=== PATIENT | male | born 1935 | race African-American/Black ===

== ENCOUNTER 2016-09-01 06:09 | Inpatient (IN) ==
--- NOTE | 2016-08-25 15:49 | EKG Report ---
Test Performed on : 08/25/2016 3:45:40 PM Test Reason : PAT Blood Pressure : / mmHG Vent. Rate : 078 BPM Atrial Rate : 078 BPM P-R Int : 244 ms QRS Dur : 088 ms QT Int : 378 ms P-R-T Axes : 065 023 020 degrees QTc Int : 430 ms Sinus rhythm. with 1st degree AV block. with premature atrial complexes. Otherwise normal ECG No previous ECGs available Confirmed by Smiley BEASLEY, Nkihil Gay ([id number]) on 08/26/2016 9:44:18 PM
[2016-08-25 16:07] LABS: MANUAL DIFF NEEDED? NO
[2016-08-25 16:10] LABS: BASO% 0.3 % (0.0-0.8); EOS# 0.14 X1000 (0.0-0.7); EOS% 1.4 % (0.0-10.0); HEMOGLOBIN 14.1 g/dL (14.0-18.0); IMM GRAN# 0.02 X1000 (0.0-0.04); IMM GRAN% 0.2 % (0.0-0.5); LYMPH# 3.48 X1000 (1.2-3.4); LYMPH% 35.4 % (20.5-51.1); MCH 29.7 PG (27-31); MCHC 33.6 g/dL (33-37); MCV 88.6 FL (81-99); MONO# 0.74 X1000 (0.11-0.59); MONO% 7.5 % (1.7-9.3); NEUT% 55.2 % (42.2-75.2); PLT 243 X1000 (130-400); RBC 4.74 XMIL (4.7-6.1)
[2016-08-25 16:29] LABS: AGAP 13; BUN 16 mg/dL (8-22); CALCIUM 9.1 mg/dL (8.8-10.2); CHLORIDE 100 mmol/L (98-107); COSMO 283; POTASSIUM 3.3 mmol/L (3.5-5.1); SODIUM 142 mmol/L (136-145); TCO2 29 mmol/L (25-35)
[2016-09-01] MEDS ORDERED: LR 1,000 ML ONE ×2 (06:31→13:54)
[2016-09-01] MEDS ORDERED: KEFZOL 1 GM/D5W 1 GM/50 ML IVPB ONE (06:31)
[2016-09-01] MEDS ORDERED: NITROGLYCERIN 50 MG/D5W 50 MG/250 ML IV.SOLN ONE (07:48)
[2016-09-01] MEDS ORDERED: HEPARIN ONE (08:54)
[2016-09-01] MEDS ORDERED: NS 1,000 ML ONE ×2 (08:55→11:05)
[2016-09-01] MEDS ORDERED: MARCAINE 0.25% PF/EPI 1:200,000 ONE (08:55)
[2016-09-01] MEDS ORDERED: XYLOCAINE 1% ONE (08:55)
[2016-09-01] MEDS ORDERED: KEFZOL ONE (08:55)
[2016-09-01] MEDS ORDERED: NS 500 ML ONE ×2 (08:55→13:54)
[2016-09-01] MEDS: OFIRMEV 1000 MG/ISOTONIC SOLN 1,000 MG/100 ML BOTTLE ONE ×2 (11:54→14:08)
[2016-09-01] MEDS ORDERED: NEO-SYNEPHRINE 50 MG in NS 250 ML IV SCH (13:00)
[2016-09-01] MEDS ORDERED: FENTANYL ONE (13:39)
[2016-09-01] MEDS ORDERED: NEOSTIGMINE ONE (13:53)
[2016-09-01] MEDS ORDERED: ANESTHESIA PB SET 88 IN 5742 ONE (13:54)
[2016-09-01] MEDS ORDERED: QUELICIN (DOSE) ONE (13:54)
[2016-09-01] MEDS ORDERED: ROBINUL ONE (13:54)
[2016-09-01] MEDS ORDERED: NEO-SYNEPHRINE ONE (13:54)
[2016-09-01] MEDS ORDERED: XYLOCAINE-MPF 2% ONE (13:54)
[2016-09-01] MEDS ORDERED: NORCURON ONE (13:54)
[2016-09-01] MEDS ORDERED: ULTRAM PO PRN (13:56)
[2016-09-01] MEDS ORDERED: ANTIVERT PO PRN (13:56)
[2016-09-01] MEDS ORDERED: ZOFRAN IV PRN (13:56)
[2016-09-01] MEDS: NS 1,000 ML IV ONE ×2 (14:08→21:19)
--- NOTE | 2016-09-01 15:30 | OPERATIVE NOTE ---
PROCEDURE DATE: 09/01/2016 DATE OF PROCEDURE: 09/01/2016. PROCEDURE PERFORMED: Right carotid endarterectomy. SURGEON: Simon Membreno MD. KENNEL HELPER: LUZ MARINA Youngbolod. 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 INDICATIONS: This is an 79-year-old with a greater than 90% stenosis of his right internal. There appeared to be serial or in-tandem stenoses in the internal carotid. The left internal is occluded. DESCRIPTION OF PROCEDURE: Satisfactory general endotracheal anesthesia was achieved. The right neck was ultrasound to identify the bifurcation and it was noted to be high. The right side of the neck was prepped and draped in a sterile fashion. We placed the patient in reverse Trendelenburg. We really went in the high skin line and then marked the skin in the high skin line, anesthetized the skin 0.25 Marcaine with epinephrine. Incised the skin in an oblique fashion in the high skin line. Carried our incision through the platysma. We then placed our Gelpi retractor. Small crossing veins were clipped and divided or ligated and divided. We then dissected down to the common carotid. We gave the patient 5000 units of heparin systemically. We surrounded the common carotid with an umbilical tape. We then dissected cephalad and identified the external carotid and surrounded with a large vessel loop. The superior thyroid was surrounded with a small vessel loop. We dissected and clipped the crossing veins and divided them and identified the hypoglossal nerve, protected it from harm. We saw where the ansa merged with the hypoglossal. We retracted underneath the mandible and identified the internal carotid. We dissected distal past the plaque. We surrounded it with small vessel loop. After the heparin had circulated for more than 5 minutes, we then clamped off the occluded flow in the branch vessels with vessel loops, but in fact I had to use a profunda clamp to get on the internal. We then used a DeBakey clamp on the common. We then incised the common with 11 blade and extended with the Vidal scissors. This was done under 2.5 loupe magnification. We went through the plaque in the bulb and the proximal end, and then the next stenosis downstream a bit or upstream a bit until we got into normal internal carotid. We placed a 4 to 3 mm Sundt shunt with the smaller end going in the internal and the larger end going in the common. These were secured with ring clamps in the internal and the common. Under 2.5 loupe magnification, we raised the plaque out of the common and transected with the Vidal scissors. We then used the Mesa to dissect the plaque out of first the external and then the internal. We had a satisfactory taper point in the internal past the second stenosis. We irrigated out the endarterectomized vessel, removed all leaflets we could identify. We decided that we would not patch this because it was so high, and it would be difficult to actually sew the patch to the artery. So we simply began closing the artery with a 6- 0 Prolene running stitch beginning in the internal and coming back toward the common. As we neared completion, we back bled the external. We took the shunt out of the internal and clamped it once again with a profunda clamp. Then, removed the shunt from the common flushing it and clamping it again with the DeBakey clamp. We then finished the arterial closure. We held the internal occluded over the external and then common. After 5 seconds, we opened the internal. One small bleeding point required an extra 6-0 Prolene simple stitch and this achieved complete hemostasis of the arteriotomy closure. A good pulse was noted within the artery. There was no evidence of dissection. We irrigated out the neck and placed a Landon drain within the neck, bringing it out inferior to the incision just above the clavicle. We secured it to the skin level with 2-0 silk. We then closed the platysma with a running 3-0 Polysorb, once again injected local 0.25 Marcaine with epinephrine into the subcutaneous tissue. We then closed the skin with a 4-0 Polysorb subcuticular stitch. Sterile dressing was applied. He tolerated it satisfactorily and was awakened. cc: Simon Membreno MD
[2016-09-01] MEDS: OFIRMEV 1000 MG/ISOTONIC SOLN 1,000 MG/100 ML BOTTLE IV SCH ×2 (17:26→23:46)
[2016-09-01] MEDS ORDERED: NS 500 ML IV ONE (20:30)
[2016-09-01] MEDS ORDERED: BLISTEX MEDICATED BERRY LIP BALM TOP PRN (23:35)
[2016-09-02] MEDS: OFIRMEV 1000 MG/ISOTONIC SOLN 1,000 MG/100 ML BOTTLE IV SCH (05:01)
[2016-09-02] MEDS ORDERED: TYLENOL PO PRN (07:10)
[2016-09-02] MEDS: NORVASC PO SCH (08:10)
[2016-09-02] MEDS: HYDROCHLOROTHIAZIDE PO SCH (08:10)
[2016-09-02] MEDS: CATAPRES PO SCH (08:10)
[2016-09-02] MEDS: PRINIVIL PO SCH (08:10)
[2016-09-02] MEDS: ASPIRIN PO SCH (08:10)
[2016-09-02] MEDS: PRAVACHOL PO SCH (08:10)
[2016-09-03] MEDS: ASPIRIN PO SCH (11:16)
[2016-09-03] MEDS: PRAVACHOL PO SCH (11:17)
[2016-09-03] MEDS: HYDROCHLOROTHIAZIDE PO SCH (11:17)
[2016-09-03] MEDS: CATAPRES PO SCH (11:17)
[2016-09-03] MEDS: NORVASC PO SCH (11:18)
[2016-09-03] MEDS: PRINIVIL PO SCH (11:19)
[2016-09-03] MEDS: PERIDEX MT SCH (23:52)
[2016-09-04] MEDS: ASPIRIN PO SCH (08:43)
[2016-09-04] MEDS: NORVASC PO SCH (08:43)
[2016-09-04] MEDS: PRINIVIL PO SCH (08:45)
[2016-09-04] MEDS: PRAVACHOL PO SCH (08:45)
[2016-09-04] MEDS: PERIDEX MT SCH (08:45)
[2016-09-04 11:33] VITALS: BP 139/63
--- NOTE | 2016-09-20 21:14 | DISCHARGE SUMMARY ---
ADMISSION DATE: 09/01/2016 DISCHARGE DATE: 09/04/2016 PRIMARY DISCHARGE DIAGNOSIS: High-grade right carotid stenosis with total carotid occlusion on the left. PRIMARY PROCEDURE: Right carotid endarterectomy. HOSPITAL COURSE: This 80-year-old gentleman was admitted for right carotid endarterectomy. He underwent that procedure uneventfully on 09/01/2016. Postoperatively he was somewhat lethargic. We were able to remove his arterial line and transfer him out of the unit. Due to his lethargy and listlessness, we kept him in the hospital until his daughter was comfortable taking him home. By 09/04 she was ready to take him home. He will take a baby aspirin at home. He will resume his usual medications. He will return to see me in the office in followup. He is discharged neurologically okay. cc: Simon Membreno MD
== END 2016-09-04 16:30 | disposition home or self-care (01) ==
LOC: SURHOLD 06:09 → ICU 13:59 → 4N 09-02 09:50
PROVIDERS: ADMIT Surgery; ATTEND Surgery

== ENCOUNTER 2016-10-07 19:18 | Inpatient (IN) ==
[2016-10-07 23:24] LABS: URINE CULTURE NEEDED? NO; URINE MICRO REVIEW NEEDED? NO; URINE SOURCE CLEAN CATCH
[2016-10-07 23:35] LABS: UR AMPHETAMINES QUAL NONE DETECTED (NONE DETECT); UR BARBITUATES QUAL NONE DETECTED (NONE DETECT); UR BENZODIAZEPIN QUAL NONE DETECTED (NONE DETECT); UR CANNABINOIDS QUAL NONE DETECTED (NONE DETECT); UR COCAINE QUAL NONE DETECTED (NONE DETECT); UR METHADONE QUAL NONE DETECTED (NONE DETECT); UR OPIATES QUAL NONE DETECTED (NONE DETECT); UR OXYCODONE QUAL NONE DETECTED (NONE DETECT); UR PCP QUAL NONE DETECTED (NONE DETECT)
[2016-10-07 23:38] LABS: MANUAL DIFF NEEDED? NO
[2016-10-07 23:41] LABS: BASO% 0.2 % (0.0-0.8); EOS# 0.08 X1000 (0.0-0.7); EOS% 0.8 % (0.0-10.0); HEMATOCRIT 39.2 % (42.0-52.0); HEMOGLOBIN 13.1 g/dL (14.0-18.0); IMM GRAN# 0.02 X1000 (0.0-0.04); IMM GRAN% 0.2 % (0.0-0.5); LYMPH# 3.33 X1000 (1.2-3.4); LYMPH% 31.7 % (20.5-51.1); MCH 29.4 PG (27-31); MCHC 33.4 g/dL (33-37); MCV 88.1 FL (81-99); MONO# 0.74 X1000 (0.11-0.59); MPV 9.9 FL (7.4-10.4); NEUT% 60.1 % (42.2-75.2); PLT 260 X1000 (130-400); RBC 4.45 XMIL (4.7-6.1)
[2016-10-07 23:43] LABS: BILIRUBIN URINE NEGATIVE (NEGATIVE); BLOOD URINE NEGATIVE (NEGATIVE); COLOR YELLOW; GLUCOSE URINE NEGATIVE (NEGATIVE); LEUKOCYTES URINE NEGATIVE (NEGATIVE); NITRITE URINE NEGATIVE (NEGATIVE); PROTEIN URINE TRACE mg/dL (NEGATIVE); TURBIDITY URINE CLEAR (CLEAR); UROBILINOGEN URINE 2 mg/dL (NORMAL)
[2016-10-07 23:44] LABS: UR EPITHELIAL CELLS <10 /HPF (<10); URINE BACTERIA NEGATIVE /HPF; URINE RBC <10 /HPF (<10); URINE WBC <10 /HPF (<10)
--- NOTE | 2016-10-07 23:44 | PROVIDER DOCUMENTATION ---
HPI-General Adult - General Chief Complaint: General Adult Stated Complaint: POSS. POST OP COMPLAINT, GENERAL Time Seen by Provider: 10/07/16 23:07 Source: patient Allergies/Adverse Reactions: Patient Allergies Allergy/AdvReac Type Severity Reaction Status Date / Time No Known Allergies Allergy Verified 08/25/16 15:23 Home Medications: Home Medication List Medication Instructions Recorded Confirmed Last Taken Type Amlodipine [Norvasc] 5 mg PO DAILY 08/26/16 10/07/16 09/01/16 04:00 History Hydrochlorothiazide 12.5 mg PO DAILY 08/26/16 10/07/16 09/01/16 04:00 History LISINOpril [Prinivil] 10 mg PO DAILY 08/26/16 10/07/16 08/31/16 08:00 History PRAVAstatin [Pravachol] 10 mg PO DAILY 08/26/16 10/07/16 09/01/16 04:00 History Aspirin 81 mg PO DAILY #100 chewtab 09/03/16 10/07/16 Unknown Rx - History of Present Illness -Gen Adult Nature of Presenting Problems: Pt is a 80 y/o M c who had bilat carotid endarterectomy on 08/22. Per his daughter he has had difficulty performing simple tasks since the procedure. She states that cognitively he has not changed. Family brought pt in today due to jerking and shaking movements that lasted approximately 30 minutes then resolved. She does not think he had LOC. Pt has a h/o htn, hld, pad, cad. Review of Systems - Adult - REVIEW OF SYSTEMS - ADULT Constitutional: reports: see HPI, jonathon. denies: chills Eyes: reports: no symptoms reported. denies: blurred vision, double vision Ears, Nose, Mouth & Throat: reports: no symptoms reported. denies: ear pain, nose pain Cardiovascular: reports: no symptoms reported. denies: chest pain, orthopnea Respiratory: reports: no symptoms reported. denies: cough, shortness of breath Gastrointestinal: reports: no symptoms reported. denies: abdominal pain, nausea Genitourinary: reports: no symptoms reported. denies: dysuria, hematuria Musculoskeletal: reports: no symptoms reported. denies: joint pain, joint swelling Integumentary: reports: no symptoms reported. denies: itching, rash Neurological: reports: see HPI, ataxia, loss of balance, tremors. denies: numbness, paresthesia Psychiatric: reports: no symptoms reported. denies: anxiety, emotional problems Endocrine: reports: no symptoms reported. denies: cold intolerance, heat intolerance Hematologic/Lymphatic: reports: no symptoms reported. denies: blood clots, low blood count Allergic/Immunologic: reports: no symptoms reported. denies: allergic reactions , food allergy All Other Systems: Reviewed and Negative Past History - Adult - PAST MEDICAL HISTORY-ADULT Review of Records: reports: Old Records Reviewed, Nursing Assessment Review, Medications Reviewed, Social history reviewed & non-contributory. Major Childhood Illnesses: reports: denies history Cardiovascular: reports: denies history Respiratory: reports: denies history Gastrointestinal: reports: denies history Obstetrical/Gynecological: reports: denies history Genitourinary: reports: denies history Musculoskeletal: reports: denies history Neurological: reports: denies history Endocrine/Immune: reports: denies history Other Conditions: reports: denies history - IMMUNIZATION STATUS Childhood Immunizations: See Nurse Assessment Flu Vaccine: See Nurse Assessment - FAMILY HISTORY Family History: reviewed, not pertinent - SOCIAL HISTORY Smoking: denies Substance Use: none/never Alcohol Use Frequency: never Living Situation: family Physical Exam-General - PHYSICAL EXAM-ADULT Initial Vital Signs Reviewed: Yes - CONSTITUTIONAL General Appearance: alert, no apparent distress - EYES Eyes: PERRL/EOMI, pink conjunctivae - HEAD, EARS, NOSE, MOUTH & THROAT HENMT: normocephalic/atraumatic, moist mucous membranes, normal ENT inspection - NECK Neck: normal inspection - RESPIRATORY Respiratory: chest non-tender, lungs clear, normal breath sounds - CARDIOVASCULAR Cardiovascular: normal peripheral pulses, regular rate, rhythm - GASTROINTESTINAL (ABDOMEN) Abdominal Exam: normal bowel sounds, non tender, soft - LYMPHATIC Lymphatic: no adenopathy - MUSCULOSKELETAL Back Exam: normal inspection, no CVA tenderness, no vertebral tenderness Extremity: normal range of motion, non-tender, normal inspection - SKIN Integumentary: normal color, normal turgor, warm/dry - NEUROLOGIC Neurologic: grossly normal, no motor/sensory deficits - PSYCHIATRIC Psych/Mental Status: normal mood/affect, normal thought content, normal thought process, oriented x 3 Progress - PLAN OF CARE/RESULTS Progress/Plan/Lab Results: Vital Signs - 8 hr 10/07/ 19:26 Temperature 98.6 F Pulse Rate 88 Respiratory Rate 14 Blood Pressure 112/60 O2 Sat by Pulse Oximetry 99 Laboratory Results - last 24 hr 10/07/16 10/07/16 10/07/16 21:50 21:50 23:34 WBC 10.52 RBC 4.45 L Hgb 13.1 L Hct 39.2 L MCV 88.1 MCH 29.4 MCHC 33.4 RDW Std Deviation 13.2 Plt Count 260 MPV 9.9 Immature Gran % (Auto) 0.2 Neut % (Auto) 60.1 Lymph % (Auto) 31.7 [place] % (Auto) 7.0 Eos % (Auto) 0.8 Baso % (Auto) 0.2 Immature Gran # (Auto) 0.02 Neut # (Auto) 6.33 Lymph # (Auto) 3.33 [place] # (Auto) 0.74 H Eos # (Auto) 0.08 Baso # (Auto) 0.02 Urine Source CLEAN CATCH Urine Color YELLOW Urine Turbidity CLEAR Urine pH 5.0 Ur Specific [place] 1.020 Urine Protein TRACE A Ur Glucose (Stick) NEGATIVE Ur Ketones (Stick) TRACE A Urine Blood NEGATIVE Urine Nitrite NEGATIVE Urine Bilirubin NEGATIVE Urobilinogen Dipstick 2 A Urine Leukocytes NEGATIVE Urine WBC (Auto) <10 Urine RBC (Auto) <10 U Epithel Cells (Auto) <10 Urine Bacteria (Auto) NEGATIVE Urine Opiates Screen NONE DETECTED Ur Oxycodone Screen NONE DETECTED Ur Methadone, Qual NONE DETECTED Ur Barbiturates Screen NONE DETECTED Ur Phencyclidine Scrn NONE DETECTED Ur Amphetamines Screen NONE DETECTED U Benzodiazepines Scrn NONE DETECTED Urine Cocaine Screen NONE DETECTED U Cannabinoids Screen NONE DETECTED Orders Category Date Time Status Finger Stick Blood Sugar (ED) DIRECTED Care 10/07/16 21:33 Active CHEST-PORTABLE [RAD] Stat Exams 10/07/16 21:33 Taken HEAD W/O CONTRAST [CT] Stat Exams 10/07/16 21:34 Taken ALCOHOL BLOOD Stat Lab 10/07/16 23:34 Received CBC WITH ELECTRONIC DIFF [HEME] Stat Lab 10/07/16 23:34 Completed CK PROFILE [SP CHEM] Stat Lab 10/07/16 23:34 Received COMPREHENSIVE METABOLIC PANEL [CHEM] Stat Lab 10/07/16 23:34 Received PROTIME WITH INR [COAG] Stat Lab 10/07/16 23:34 Received PTT [COAG] Stat Lab 10/07/16 23:34 Received TROPONIN T Stat Lab 10/07/16 23:34 Received URINALYSIS W/POSS RFLX CULT-1 [URINALYSIS] Stat Lab 10/07/16 21:50 Completed URINE DRUG SCREEN Stat Lab 10/07/16 21:50 Completed EKG [EKG] Stat Ther 10/07/16 19:32 Ordered Result Diagrams: 10/07/16 23:34 10/07/16 23:34 - CT/MRI 1 CT Study: Head Impression: Normal CT Results: no acute finding - radiology - CONSULTS/PCP/HOSPITALIST Notification #1 *Consult/PCP/Hospitalist*: Dr. Membreno (General Surgery) Time Discussed: 00:41 Reason/Comments: Agree c admission. Will see as consult. #2 Consult: Dr. West (Hospitalist) Time Discussed: 00:42 Reason/Comments: admit Departure - Departure Time of Disposition Decision: 00:57 DIAGNOSIS: Altered mental status Qualifiers: Altered mental status type: unspecified Qualified Code(s): R41.82 - Altered mental status, unspecified Disposition: ADMITTED INPATIENT 09 Certified Medical Emergency: Emergent Condition: Stable Referrals and Follow-Ups: Erendira Guzman MD [Primary Care Provider] - - Critical Care Note This patient required my direct & personal management of CC.: No Attestation - Physician/ HOOD Attestation Patient care was provided by Advanced Practice Provider:: Yes Advanced Practice Provider:: Jin Chacon Advanced Practice Provider documentation review:: The Mid-level provider documentation, treatment plan and medical decision making was reviewed by the physician who agrees with all treatment and medical decision making by the [facility].
[2016-10-07 23:49] LABS: INR 1.03; PROTIME 10.8 Seconds (9.2-11.7); PTT 29.1 Seconds (22.0-36.0)
[2016-10-08 00:11] LABS: ALBUMIN 3.9 g/dL (3.5-5.0); CALCIUM 9.4 mg/dL (8.8-10.2); POTASSIUM 3.9 mmol/L (3.5-5.1); TOTAL BILIRUBIN 0.36 mg/dL (0.20-1.00); TOTAL PROTEIN 7.6 g/dL (6.3-8.3)
[2016-10-08] MEDS ORDERED: NS 1,000 ML IV SCH ×2 (01:37→10:38)
[2016-10-08] MEDS ORDERED: ZOFRAN IV PRN (01:37)
--- NOTE | 2016-10-08 04:04 | HISTORY AND PHYSICAL ---
PRIMARY CARE PROVIDER: Erendira Guzman MD CHIEF COMPLAINT: Shaking spell at home. HISTORY OF PRESENT ILLNESS: This is an 80-year-old male, who recently had a right carotid endarterectomy on, I believe, 08/22/2016, per his daughter. The left was 100% occluded. Since that time, they state that he has had difficulty performing simple tasks such as putting on his clothes appropriately or picking up the correct silverware. Apparently, his mentation has not changed. On arrival to the emergency room, he was alert and oriented as per his usual. During my interview, the patient was not able to tell me the year; however, his and daughter at the bedside stated that he usually does not know the year. He was oriented to person, place, and situation. He was brought in related to a jerking and shaking movement that neither of the family members witnessed. He did not lose consciousness. He did not lose continence of his bowel or bladder. He continued to talk throughout apparently. It lasted for around 30 minutes and resolved. He has a past medical history of hypertension, hyperlipidemia, PAD and CAD. A CT scan was obtained of his head and Radiology interpreted as no acute disease. Laboratory data was grossly normal other than a BUN of 46 and a creatinine of 1.5. The patient has a baseline creatinine of 0.9 as tested on 08/25/2016. He will be admitted for further evaluation and treatment. PAST MEDICAL HISTORY: 1. Hypertension. 2. Hyperlipidemia. 3. Prostate cancer. 4. Coronary artery disease. 5. Peripheral artery disease. SURGICAL HISTORY: 1. Prostatectomy. 2. Right carotid endarterectomy performed by Dr. Membreno, August 2016. SOCIAL HISTORY: Lives at home with his . No tobacco, alcohol or illicit drug use or abuse. FAMILY HISTORY: Brother and father abused alcohol. Brother and mother had anemia. Sister had colon cancer. Father and mother had hypertension. ALLERGIES: No known drug allergies. HOME MEDICATIONS: 1. Hydrochlorothiazide 12.5 mg p.o. daily. 2. Pravachol 10 mg p.o. daily. 3. Lisinopril 10 mg p.o. daily. 4. Norvasc 5 mg p.o. daily. 5. Aspirin 81 mg p.o. daily. REVIEW OF SYSTEMS: Fourteen point review of systems conducted with the patient. Pertinent positives listed above in the HPI. All other systems were reviewed and found to be negative. PHYSICAL EXAMINATION: VITAL SIGNS: Temperature 98.6 degrees, pulse 88, respirations 14, blood pressure 112/60, oxygen saturation 99% on room air. GENERAL: This is a slow to respond 80-year-old male, but answers all questions appropriately in no acute distress lying in the ER stretcher. HEENT: Head is atraumatic, normocephalic. Pupils equal, round, reactive to light. Extraocular eye movement intact. Sclerae is anicteric. Conjunctivae is pink. Oral mucosa is dry. NECK: Supple. No JVD. No thyromegaly. Trachea is midline. No cervical lymphadenopathy. CARDIAC: S1-S2 appreciated. Regular rhythm. No murmurs, gallops, rubs. LUNGS: Clear to auscultation bilaterally. No rhonchi, wheezes or rales. Symmetrical rise and fall of respirations. ABDOMEN: Soft, nondistended, nontender. Bowel sounds present in all 4 quadrants. Normoactive. No pulsatile mass. No organomegaly. EXTREMITIES: No clubbing or cyanosis. Trace edema bilateral lower extremities nonpitting, 2+ pedal pulses. NEUROLOGICAL: Alert and oriented to person, place, and situation. Did not know the time. However, this is his baseline. No facial asymmetry. Cranial nerves 2-12 were grossly intact. MUSCULOSKELETAL: 5/5 upper and lower extremity strength equal bilaterally. DIAGNOSTIC DATA: CT of the head, no acute disease is interpreted by Radiology. LABORATORY DATA: WBC 10.52, hemoglobin 13.1, hematocrit 39.2, platelet count 260,000. Coagulation studies within normal limits. Sodium 137, potassium 3.9, chloride 97, carbon dioxide 24, BUN 46, creatinine 1.5, glucose 87. Urine unremarkable. Toxicology screen is negative. ASSESSMENT AND PLAN: 1. Acute kidney injury. The patient had surgery last month. The family states that it is hard to get him to drink as much as they were told. He had continued to take his lisinopril thiazide diuretic, which likely compounded the problem. We will give him normal saline at 100 mL an hour. Hold PETRA inhibitor and thiazide diuretic. 2. Hypertension. Continue Norvasc. Patient is normotensive. Will monitor. 3. Hyperlipidemia. Continue pravastatin. 4. Carotid stenosis. Patient is status post right carotid endarterectomy August of this year. We will consult Dr. Membreno to further evaluate left carotid is 100% occluded. Further recommendations per patient's clinical course. Dictated by BRITTANY Sandy for Jeremiah West MD cc: BRITTANY Sandy MD Robert C. Walker, MD Emily M. McClure, MD
[2016-10-08] MEDS: NORVASC PO SCH (08:15)
[2016-10-08] MEDS: ASPIRIN PO SCH (08:15)
[2016-10-08] MEDS ORDERED: HALDOL IM PRN (08:39)
[2016-10-08] MEDS ORDERED: STERILE WATER INJ. INJ PRN (08:40)
[2016-10-08] MEDS ORDERED: GEODON IM PRN (08:40)
[2016-10-08] MEDS ORDERED: HALDOL ONE (08:45)
--- NOTE | 2016-10-08 09:39 | Diag Imaging Result Doc PS360 ---
HEAD W/O CONTRAST - 10/07/2016 INDICATION: AMS TECHNIQUE: A CT dose reduction protocol was used. COMPARISON: None FINDINGS: There is mild atrophy. There is mild cerebral white matter chronic microvascular disease. There are small areas of encephalomalacia at the frontal lobes bilaterally compatible with small, old strokes. No intracranial mass or hemorrhage. The skull is intact. The sinuses, mastoids, and middle ears are clear. IMPRESSION: Chronic ischemic changes of the brain. No acute abnormality. Electronically signed by William Pinedo 10/08/2016 9:37 AM
--- NOTE | 2016-10-08 09:42 | Diag Imaging Result Doc PS360 ---
CHEST-PORTABLE - 10/07/2016 INDICATION: AMS TECHNIQUE: COMPARISON: CT of the neck 08/16/2016 FINDINGS: The right paratracheal stripe density represents unfolded vessels. The lungs are clear of infiltrate. Heart size is normal. No pneumothorax or pleural effusion. IMPRESSION: No acute disease. Electronically signed by William Pinedo 10/08/2016 9:40 AM
[2016-10-08 10:16] LABS: ALLEN TEST YES; BE -3.6 mmoll (-3.0-3.0); BLOOD TYPE ARTERIAL; DRAW SITE R RADIAL; METHB 1.1 % (0.0-1.5); O2(CT) 19.5 mL/dL (15.0-23.0); PCO2(98.6) 33 mmHg (35-45); PO2(98.6) 336 mmHg (60-100); SAMPLE BLOOD; SAO2 99.9 % (95.0-100.0); THB 13.6 g/dL (11.5-17.4)
[2016-10-08 10:17] LABS: MODALITY AMBU BAG
--- NOTE | 2016-10-08 11:11 | Diag Imaging Result Doc PS360 ---
HEAD W/O CONTRAST - 10/08/2016 INDICATION: post code TECHNIQUE: A CT dose reduction protocol was used. COMPARISON: 10/07/2016 FINDINGS: Stable atrophy and mild periventricular white matter chronic microvascular disease. Stable small area of old encephalomalacia at the right frontal lobe laterally. No intracranial mass or hemorrhage. IMPRESSION: No acute disease or change from prior. Electronically signed by William Pinedo 10/08/2016 11:08 AM
[2016-10-08] MEDS ORDERED: ATIVAN IV ONE (11:50)
--- NOTE | 2016-10-08 11:59 | Diag Imaging Result Doc PS360 ---
CHEST-PORTABLE - 10/08/2016 INDICATION: post chest compressions TECHNIQUE: COMPARISON: 10/07/2016 FINDINGS: There is no acute disease or change from prior. IMPRESSION: No acute disease or change from prior. Electronically signed by William Pinedo 10/08/2016 11:56 AM
[2016-10-08] MEDS ORDERED: KEPPRA 1,000 MG in NS 100 ML IV ONE (12:00)
[2016-10-08 12:47] LABS: URINE CULTURE NEEDED? NO; URINE MICRO REVIEW NEEDED? NO; URINE SOURCE CATH
[2016-10-08 12:50] LABS: BILIRUBIN URINE NEGATIVE (NEGATIVE); BLOOD URINE NEGATIVE (NEGATIVE); COLOR YELLOW; GLUCOSE URINE NEGATIVE (NEGATIVE); LEUKOCYTES URINE NEGATIVE (NEGATIVE); NITRITE URINE NEGATIVE (NEGATIVE); PROTEIN URINE TRACE mg/dL (NEGATIVE); SP GRAVITY URINE 1.019; TURBIDITY URINE HAZY (CLEAR); UROBILINOGEN URINE NORMAL (NORMAL)
[2016-10-08 12:51] LABS: UR EPITHELIAL CELLS <10 /HPF (<10); URINE BACTERIA NEGATIVE /HPF; URINE RBC <10 /HPF (<10); URINE WBC <10 /HPF (<10)
--- NOTE | 2016-10-08 14:10 | CONSULTATION ---
DATE OF CONSULTATION: 10/08/2016 CONSULTATION TO: Dr. Micah Ibarra. Thank you very much for asking me to see this very unfortunate 80-year-old male white. IMPRESSION: 1. Acute delirium with respiratory depression, possible postictal state versus cerebrovascular accident versus metabolic delirium. 2. Chronic renal insufficiency. 3. Status post right carotid endarterectomy August 2016. 4. History of prostate cancer as well as coronary artery disease. RECOMMENDATION: He appears to be stable in the ICU on supplemental oxygen. I will deliver Lovenox milligram per kilogram per 24 hours adjusted for his renal insufficiency, ultimately obtain a CT of the chest, hydrate him very cautiously and monitor his gas exchange and will follow closely along with you. HISTORY: This very pleasant 80-year-old male had carotid endarterectomy in August 2016. He subsequently developed the onset of some weakness and stumbling and yesterday presented to the emergency room, was admitted for acute mental status change. This morning on the floor he was found to be unresponsive and the nurse practitioner responded for the hospitalists and subsequently was found to have respiratory depression. He subsequently was bagged but started breathing again and an ABG demonstrated 7.40 pH with a 33 CO2 and a 336 O2. He has moved to the unit after a CAT scan did not show any acute abnormalities and is stable. I am consulted to assist in his care. SOCIALLY: He is a lifelong nonsmoker, nondrinker. He lives at home with his . He is retired from [employer] for 20 years. Prior to earlier in the year he was functional with no limitations. PAST MEDICAL HISTORY: Positive for hypertension, prostate cancer, ischemic heart disease, peripheral vascular disease, hypercholesterolemia. FAMILY HISTORY: Noncontributory. REVIEW OF SYSTEMS: Except for the features mentioned above is negative on a 14-point review. HOME MEDICATIONS: Pravachol 10 mg a day, hydrochlorothiazide 12.5 mg daily, lisinopril 10 mg a day, Norvasc 5 mg a day, aspirin 81 mg a day. PHYSICAL EXAM: Vital signs: This kind, elderly man shows a blood pressure of 139/68 with a pulse of 79, respirations 13, temperature 98.5 degrees. HEENT: Reveals no thyromegaly or adenopathy. Pupils are equal and reactive. Extraocular muscles are intact. Neck: Supple. No bruits. No thyromegaly. No JVD. Chest: Reveals bilateral equal breath sounds with some prolongation expiratory phase and forced expiratory wheezes. Cardiac Exam: Reveals a regular rhythm. Abdomen: Soft. Skin: Warm, dry. Neurologically: Grossly nonfocal, awake, moves all 4. Neurologically he makes no purposeful responses but does move all 4 to pain. He is not oriented. LABORATORY DATA: The sodium is 137, potassium 3.9, chloride 97, CO2 24, BUN 46, creatinine 1.5, glucose 87. White count 10,500, hemoglobin 13.1, hematocrit 32.9, platelets 260,000. ABG shows a 7.40 pH with a 33 CO2 and a 366 O2. His chest radiograph shows no cardiomegaly and no acute abnormalities.
[2016-10-08] MEDS ORDERED: HEPARIN IV ONE ×2 (14:12)
[2016-10-08] MEDS ORDERED: HEPARIN 25,000 UNITS/D5W 25,000 UNIT/250 ML IV.SOLN IV SCH (14:15)
[2016-10-08 14:29] LABS: MANUAL DIFF NEEDED? NO
[2016-10-08 14:34] LABS: HEMATOCRIT 38.8 % (42.0-52.0); HEMOGLOBIN 12.7 g/dL (14.0-18.0); IMM GRAN# 0.05 X1000 (0.0-0.04); IMM GRAN% 0.4 % (0.0-0.5); LYMPH# 2.24 X1000 (1.2-3.4); LYMPH% 17.8 % (20.5-51.1); MCH 28.7 PG (27-31); MCHC 32.7 g/dL (33-37); MCV 87.6 FL (81-99); MONO# 0.48 X1000 (0.11-0.59); MONO% 3.8 % (1.7-9.3); MPV 9.7 FL (7.4-10.4); PLT 266 X1000 (130-400); RBC 4.43 XMIL (4.7-6.1)
[2016-10-08 14:43] LABS: INR 1.04; PROTIME 10.9 Seconds (9.2-11.7)
[2016-10-08 14:44] LABS: PTT HEPARIN PROTOCOL 27.7 Seconds
[2016-10-08 14:49] LABS: AGAP 13; BUN 41 mg/dL (8-22); CALCIUM 9.1 mg/dL (8.8-10.2); CHLORIDE 96 mmol/L (98-107); COSMO 274; POTASSIUM 4.1 mmol/L (3.5-5.1); SODIUM 132 mmol/L (136-145); TCO2 23 mmol/L (25-35)
[2016-10-08] MEDS: DUONEB (A & A) INH SCH ×3 (15:49→22:49)
[2016-10-08] MEDS: ATIVAN IV SCH (16:11)
--- NOTE | 2016-10-08 18:12 | PROGRESS NOTE ---
DATE: 10/08/2016 SUBJECTIVE: Mr. Capps was ambulating the halls and was very restless and confused. We gave him a dose 4 mg Haldol 30 minutes later with no affect we gave him 20 mg of Geodon. He then became pretty sleepy was sitting in the chair fell asleep, we got him ready go to bed, he quit breathing and began Ambu bag and chest compressions. He continued to have a pulse and remained in sinus rhythm. Did not have to intubate although we came close. His O2 saturations remained acceptable and moved him to the unit. Once he got to the unit later on appeared to have a seizure having posturing and we gave him some Ativan and we loaded him with 1000 mg Keppra. He is sleeping now, is question on his left lip, left side his face a little droop but states that he does that often when he sleeps. He appears comfortable sleeping, feel like he had acute delirium with respiratory depression possibly postictal state versus cerebrovascular accident versus metabolic delirium. He has chronic renal insufficiency. He is status post carotid endarterectomy in August 2016, history of prostate cancer, coronary artery disease. Aware of that. EXAM: General: At the present time comfortable sleeping. Lungs: Clear anterolateral. Cardiovascular: Regular rhythm, rate without murmur, S3. Vital signs: Afebrile, temperature 97.8 degrees. Urine output was 500 mL. LAB: White count 12,610, hematocrit 38, platelet count 266,000. Sodium 132, potassium 4.1, chloride 96, BUN 41, creatinine 1.2 which is improved from when he came in. ASSESSMENT AND PLAN: 1. Acute delirium with respiratory depression, possible postictal state versus cerebrovascular accident versus metabolic delirium, recent carotid endarterectomy, I am going to go ahead and put him on some heparin right now, did a repeat CT scan which was unremarkable but concerned about ischemia on that right side. I realize there is possibility of turning this into hemorrhagic stroke but I think will start him on some heparin. 2. Chronic renal insufficiency acute on chronic. He is doing better from renal function. 3. History of prostate cancer, coronary artery disease, aware. We are treating him for urinary tract infection so present medication lorazepam he can have 1 mg q.4 hours p.r.n., he is on Norvasc 5 mg a day, aspirin 81 mg a day, Pravachol 10 mg at bedtime, on the heparin protocol. Will check lab and chest x-ray in the morning. cc: Darwin Ibarra MD
[2016-10-08] MEDS: PRAVACHOL PO SCH (20:12)
[2016-10-08] MEDS: NS 1,000 ML IV PRN (22:00)
[2016-10-09] MEDS: KEPPRA 500 MG in NS 100 ML IV SCH ×3 (00:12→23:27)
--- NOTE | 2016-10-09 01:25 | ED EKG INTERP ---
This chart was entered by Dax Gregory Scribe, acting as scribe for Zackery Aranda MD. EKG Interpretation - EKG Time of EKG reading by physician:: 19:35 EKG Read and Signed by:: Zackery Aranda EKG Interpretation (*Must complete 3 of following elements*): Normal Rate: 85 Rhythm: Sinus rhythm with 1st degree AV block This chart was documented by the indicated scribe, (Dax Gregory Scribe) and accurately reflects the services I performed and decisions made by me, Zackery Aranda MD, as attested by the provider's signature.
[2016-10-09] MEDS: DUONEB (A & A) INH SCH ×6 (02:55→22:54)
[2016-10-09] MEDS: ATIVAN IV SCH ×2 (04:54→17:30)
[2016-10-09 05:07] LABS: MANUAL DIFF NEEDED? NO
[2016-10-09 05:10] LABS: BASO% 0.2 % (0.0-0.8); EOS# 0.02 X1000 (0.0-0.7); EOS% 0.2 % (0.0-10.0); HEMATOCRIT 36.9 % (42.0-52.0); HEMOGLOBIN 12.4 g/dL (14.0-18.0); IMM GRAN# 0.02 X1000 (0.0-0.04); IMM GRAN% 0.2 % (0.0-0.5); LYMPH% 19.9 % (20.5-51.1); MCH 29.8 PG (27-31); MCHC 33.6 g/dL (33-37); MCV 88.7 FL (81-99); MONO# 0.92 X1000 (0.11-0.59); MPV 9.9 FL (7.4-10.4); NEUT% 72.5 % (42.2-75.2); PLT 242 X1000 (130-400); RBC 4.16 XMIL (4.7-6.1)
[2016-10-09 05:34] LABS: AGAP 13; BUN 29 mg/dL (8-22); CALCIUM 9.2 mg/dL (8.8-10.2); CHLORIDE 103 mmol/L (98-107); COSMO 282; POTASSIUM 4.1 mmol/L (3.5-5.1); SODIUM 139 mmol/L (136-145); TCO2 23 mmol/L (25-35)
--- NOTE | 2016-10-09 06:23 | Diag Imaging Result Doc PS360 ---
EXAM: CHEST-1 VIEW HISTORY: copd TECHNIQUE: Portable AP COMPARISON: 10/08/2016 FINDINGS: The lungs are well expanded. The heart is not enlarged. The vessels are not distended. There are no infiltrates. No effusion identified. Moderate scoliosis. IMPRESSION: Stable chest. Electronically signed by Zeb Alatorre 10/09/2016 6:21 AM
[2016-10-09] MEDS: NORVASC PO SCH ×2 (09:00→11:08)
[2016-10-09] MEDS: ASPIRIN PO SCH ×2 (09:00→11:08)
--- NOTE | 2016-10-09 10:21 | PROGRESS NOTE ---
DATE: 10/09/2016 SUBJECTIVE: He appears comfortable. He did respond to just questions and touch. He does not show any sign of focal neurologic deficits. PHYSICAL EXAMINATION: Vital Signs: Remains afebrile. Temperature 97.3 degrees, pulse 60, respirations 14, blood pressure 120/63. HEENT: Pupils are equal and round. CVP less than 6 cm. Respiratory: Lungs are clear in all lung fiore. Cardiovascular Examination: Regular rhythm and rate without murmur or S3. Abdomen: Soft. Skin: Warm and dry. Is and Os: Good urine output, 2200 mL. LAB: White count 13,090, hematocrit 36, platelet count 242,000. Chemistry: Sodium 139, potassium 4.1, chloride 103, BUN 29, creatinine 0.9. Folate was 8, B12 285. Chest x-ray from this morning with stable chest. ASSESSMENT AND PLAN: 1. Appeared to have confusion and altered mental status. Appeared to have a seizure yesterday and really acted more postictal. He is better. No focal deficits appreciated. I have stopped the heparin. He is still pretty sleepy but seems to be improving. Respiratory status, breathing comfortably. 2. Chronic renal insufficiency with acute kidney injury. This has improved. Creatinine down to 0.9. Giving him some fluids. 3. Recently had a right carotid endarterectomy, aware. 4. History of prostate cancer and coronary artery disease. Aware. 5. Review of his orders. He seems to be doing better. I did go ahead and start him on levetiracetam, or Keppra. He is on 500 mg intravenous every 12 hours. Seems to be improving so pleased with that. We will keep him in the unit. Stop the heparin. I have not seen any further seizure activity. Labs from this morning. I am going to supplement his folate and B12. cc: Darwin Ibarra MD
[2016-10-09] MEDS: NS IV SCH (11:16)
[2016-10-09] MEDS: FOLIC ACID IV SCH (11:16)
[2016-10-09] MEDS: CYANOCOBALAMIN IM SCH (11:41)
[2016-10-09] MEDS: ATIVAN IV PRN (11:44)
[2016-10-09] MEDS: NS 1,000 ML IV PRN (11:48)
[2016-10-09] MEDS: LOVENOX SUBQ SCH ×2 (13:31→23:29)
--- NOTE | 2016-10-09 14:56 | Diag Imaging Result Doc PS360 ---
EXAM: ANGIOGRAM/PULMONARY ARTERIES HISTORY: Incomplete clinical information provided TECHNIQUE: COMPARISON: None. FINDINGS: Normal opacification of the pulmonary arteries and their major branches. No cardiomegaly. No thoracic aortic aneurysm or dissection. There are calcified mediastinal and right hilar lymph nodes with scattered calcified granuloma. There are infiltrates or atelectasis in the left lower lobe. No bronchiectasis. IMPRESSION: 1.No pulmonary emboli 2.There is evidence of a prior granulomatous infection 3.Small infiltrates and atelectasis in the left lower lobe Electronically signed by Zeb Alatorre 10/09/2016 2:54 PM
[2016-10-09] MEDS: PRAVACHOL PO SCH (20:02)
[2016-10-10] MEDS: ATIVAN IV PRN (00:12)
[2016-10-10] MEDS: NS 1,000 ML IV PRN ×2 (00:54→15:25)
[2016-10-10] MEDS: DUONEB (A & A) INH SCH ×6 (02:52→22:34)
[2016-10-10] MEDS: ATIVAN IV SCH ×2 (04:10→15:02)
[2016-10-10] MEDS ORDERED: ZOSYN 3.375 GM/NS 50 ML IV SCH (06:30)
[2016-10-10] MEDS: MERREM 500 MG in NS 50 ML IV SCH ×3 (07:27→21:30)
[2016-10-10] MEDS: SODIUM CHLORIDE 0.9% INJ SCH (07:33)
[2016-10-10] MEDS: PROTONIX IV SCH (07:34)
--- NOTE | 2016-10-10 07:34 | EKG Report ---
Test Performed on : 10/09/2016 1:09:41 PM Test Reason : No Order in [facility] Blood Pressure : / mmHG Vent. Rate : 095 BPM Atrial Rate : 095 BPM P-R Int : 222 ms QRS Dur : 084 ms QT Int : 348 ms P-R-T Axes : 062 030 023 degrees QTc Int : 437 ms Sinus rhythm. with 1st degree AV block. Otherwise normal ECG When compared with ECG of 08-OCT-2016 12:52, (Unconfirmed) No significant change was found Confirmed by Jade BEASLEY, Paul Gay ([id number]) on 10/11/2016 8:20:21 AM
--- NOTE | 2016-10-10 07:38 | EKG Report ---
Test Performed on : 10/08/2016 12:52:02 PM Test Reason : TWAVE Blood Pressure : / mmHG Vent. Rate : 084 BPM Atrial Rate : 084 BPM P-R Int : 234 ms QRS Dur : 092 ms QT Int : 378 ms P-R-T Axes : 062 031 012 degrees QTc Int : 446 ms Sinus rhythm. with 1st degree AV block. Early repolarization Otherwise normal ECG When compared with ECG of 08-OCT-2016 10:01, (Unconfirmed) IN interval has increased Confirmed by Jade BEASLEY, Paul Gay ([id number]) on 10/11/2016 8:18:57 AM
--- NOTE | 2016-10-10 08:00 | EKG Report ---
Test Performed on : 10/07/2016 7:35:53 PM Test Reason : weakness Blood Pressure : / mmHG Vent. Rate : 085 BPM Atrial Rate : 085 BPM P-R Int : 212 ms QRS Dur : 086 ms QT Int : 350 ms P-R-T Axes : 067 029 016 degrees QTc Int : 416 ms Sinus rhythm. with 1st degree AV block. Otherwise normal ECG When compared with ECG of 25-AUG-2016 15:45, premature atrial complexes. are no longer present Unconfirmed Result
[2016-10-10 08:07] LABS: MANUAL DIFF NEEDED? NO
--- NOTE | 2016-10-10 08:07 | EKG Report ---
Test Performed on : 10/08/2016 10:01:34 AM Test Reason : No Order in [facility] Blood Pressure : / mmHG Vent. Rate : 080 BPM Atrial Rate : 080 BPM P-R Int : 190 ms QRS Dur : 084 ms QT Int : 354 ms P-R-T Axes : 067 039 024 degrees QTc Int : 408 ms Normal sinus rhythm. Normal ECG When compared with ECG of 07-OCT-2016 19:35, No significant change was found Confirmed by Paul Hansen MD ([id number]) on 10/11/2016 8:18:42 AM
[2016-10-10 08:14] LABS: BASO% 0.2 % (0.0-0.8); EOS# 0.04 X1000 (0.0-0.7); EOS% 0.3 % (0.0-10.0); HEMATOCRIT 38.1 % (42.0-52.0); HEMOGLOBIN 12.9 g/dL (14.0-18.0); IMM GRAN# 0.02 X1000 (0.0-0.04); IMM GRAN% 0.2 % (0.0-0.5); LYMPH# 3.04 X1000 (1.2-3.4); LYMPH% 23.4 % (20.5-51.1); MCH 29.8 PG (27-31); MCHC 33.9 g/dL (33-37); MONO# 0.87 X1000 (0.11-0.59); MONO% 6.7 % (1.7-9.3); NEUT% 69.2 % (42.2-75.2); PLT 269 X1000 (130-400); RBC 4.33 XMIL (4.7-6.1)
[2016-10-10 08:31] LABS: AGAP 16; ALBUMIN 3.8 g/dL (3.5-5.0); ALKALINE PHOSPHATASE 50 U/L (32-122); BUN 16 mg/dL (8-22); CHLORIDE 102 mmol/L (98-107); COSMO 279; GOT 15 U/L (10-34); GPT 8 U/L (10-44); POTASSIUM 3.7 mmol/L (3.5-5.1); SODIUM 140 mmol/L (136-145); TCO2 22 mmol/L (25-35); TOTAL BILIRUBIN 0.49 mg/dL (0.20-1.00); TOTAL PROTEIN 7.1 g/dL (6.3-8.3)
--- NOTE | 2016-10-10 10:27 | PROGRESS NOTE ---
DATE: 10/10/2016 SUBJECTIVE: Mr. Capps is awake, moving all extremities. He does answer questions. I think he is oriented to person. I am not sure he knows he is in the hospital. Still lethargic, but much better than yesterday. He says he feels pretty tired. No pain. OBJECTIVE: Vital Signs: Temp 97.8 degrees, pulse 100, respirations 20, blood pressure 159/83. Lungs are clear in all lung fiore. Cardiovascular: Regular rhythm and rate without murmur or S3. Abdomen: Soft. Skin is warm and dry. Good urine output at 2500 mL. LABORATORY DATA: Reviewed. White count 13,010, hematocrit 38, platelet count 269,000. Sodium 140, potassium 3.7, chloride 102, BUN 16, creatinine 0.7. Folate was 8.0. B12, I do not think we have checked, so I do want to check the B12 and folate again. Review of orders. ASSESSMENT AND PLAN: 1. I am going to treat this as a seizure. It does not appear to be a cerebrovascular accident. He appears to be doing better, although he appears to be in a postictal state. He is on Keppra 500 mg intravenously every 12 hours. He is making improvement. 2. I have him on meropenem 500 mg eery 8 hours, intravenous fluids going with normal saline at 75 mL an hour. Pulmonary arteriogram: No pulmonary emboli. Shows evidence of prior granulomatous infection, small infiltrates or atelectasis, left lower lobe. cc: Darwin Ibarra MD
[2016-10-10] MEDS: NS IV SCH (10:29)
[2016-10-10] MEDS: FOLIC ACID IV SCH (10:29)
[2016-10-10] MEDS: ASPIRIN PO SCH (10:30)
[2016-10-10] MEDS: NORVASC PO SCH (10:30)
[2016-10-10] MEDS: CYANOCOBALAMIN IM SCH (10:30)
[2016-10-10] MEDS: KEPPRA 500 MG in NS 100 ML IV SCH (13:41)
[2016-10-10] MEDS: PRAVACHOL PO SCH (21:34)
[2016-10-11] MEDS: KEPPRA 500 MG in NS 100 ML IV SCH (00:43)
[2016-10-11] MEDS: DUONEB (A & A) INH SCH ×6 (03:20→22:59)
[2016-10-11] MEDS: ATIVAN IV SCH (03:22)
[2016-10-11] MEDS: NS 1,000 ML IV PRN (05:01)
[2016-10-11 05:43] LABS: MANUAL DIFF NEEDED? NO
[2016-10-11 06:00] LABS: BASO% 0.1 % (0.0-0.8); EOS# 0.09 X1000 (0.0-0.7); EOS% 0.7 % (0.0-10.0); HEMATOCRIT 40.8 % (42.0-52.0); HEMOGLOBIN 13.6 g/dL (14.0-18.0); IMM GRAN# 0.04 X1000 (0.0-0.04); IMM GRAN% 0.3 % (0.0-0.5); LYMPH# 3.53 X1000 (1.2-3.4); MCH 29.6 PG (27-31); MCHC 33.3 g/dL (33-37); MCV 88.9 FL (81-99); MONO# 1.09 X1000 (0.11-0.59); MPV 10.2 FL (7.4-10.4); NEUT% 64.9 % (42.2-75.2); PLT 263 X1000 (130-400); RBC 4.59 XMIL (4.7-6.1)
[2016-10-11] MEDS: MERREM 500 MG in NS 50 ML IV SCH ×3 (06:01→21:40)
[2016-10-11] MEDS: PROTONIX IV SCH (06:01)
[2016-10-11 06:49] LABS: AGAP 16; BUN 13 mg/dL (8-22); CALCIUM 9.2 mg/dL (8.8-10.2); CHLORIDE 103 mmol/L (98-107); COSMO 280; POTASSIUM 4.5 mmol/L (3.5-5.1); SODIUM 142 mmol/L (136-145); TCO2 23 mmol/L (25-35)
--- NOTE | 2016-10-11 07:48 | PROGRESS NOTE ---
DATE: 10/08/2016 SUBJECTIVE: Mr. Capps was admitted last night. He is followed by Dr. Erendira Guzman. He had a shaking spell at home. This 80-year-old recently had a right carotid endarterectomy I believe on 08/22/2016. His daughter stated his left was 100% occluded. Since that time, they stated that he had difficulty performing simple tasks such as putting on clothes appropriately, picking up correct silverware. Apparently, his mentation has not changed. On arrival to the emergency room, he was alert and oriented per his usual. During an interview, the patient was not able to tell me the year; however, his and daughter at bedside stated he usually does not know the year. He was oriented to person, place, and situation. It was though related because he had some jerking and shaking movements. Neither of the family members witnessed. He did not lose consciousness. He did not lose any continence of his bowel or bladder. He continued to talk throughout apparently. It lasted for about 30 minutes and resolved. He has a history of hypertension, hyperlipidemia, peripheral artery disease, coronary artery disease. CT scan obtained of the head interpreted no acute disease. LABORATORY DATA: BUN was 46, creatinine 1.5. The patient has at baseline creatinine of 0.9. PAST MEDICAL HISTORY: Hypertension, hyperlipidemia, prostate cancer, coronary artery disease, peripheral artery disease. SURGICAL HISTORY: Prostatectomy, right carotid endarterectomy performed by Dr. Jonn Membreno in 08/2016. The patient this morning is confused, wandering the halls, not really sure where he is. We gave him a little bit of Haldol. He is resting, sitting in the chair at the present time, breathing comfortably. OBJECTIVE: He remains afebrile. Pulse 80, respirations 20, blood pressure 118/59. Lungs are clear in all lung fiore. Cardiovascular: Regular rhythm and rate without murmur or S3. Abdomen is soft. Skin is warm and dry. LABORATORY DATA: White count 10,520. Hematocrit 39, platelet count 206,000. Sodium 137, potassium 3.9, chloride 97, bicarb 24. BUN 46, creatinine 1.5. ASSESSMENT AND PLAN: INCOMPLETE REPORT -- DICTATION ENDS HERE. cc: Darwin Ibarra MD
[2016-10-11] MEDS ORDERED: APRESOLINE IV PRN (10:21)
[2016-10-11] MEDS ORDERED: STERILE WATER INJ. INJ PRN (10:22)
[2016-10-11] MEDS ORDERED: VANCOMYCIN IV PER PHARMACY MISC SCH (10:30)
--- NOTE | 2016-10-11 10:49 | PROGRESS NOTE ---
DATE: 10/11/2016 SUBJECTIVE: This morning, Mr. Capps continues to be extremely delirious and confused, not focalizing, and mumbles some words. OBJECTIVE: Vital Signs: Blood pressure is 148/80, pulse of 99, respirations of 21, temperature is 99.9 degrees. General: Mr. Capps an 80-year-old male. He is in bed, does not seem to be in any remarkable distress. HEENT: Mucosa is pink and moist. Anicteric. Acyanotic. Neck: Supple. Chest: Air entry is bilaterally reduced. A few bibasilar crepitations, more so to the left posterior lung field. Cardiovascular: Tachycardic. No murmurs. Abdomen is soft. Extremities: No pedal edema. 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 Mumbles some sentences, which are not easily comprehensible. Would move all his extremities to painful stimulation. LABORATORY DATA: WBC is 13.60, hemoglobin is 13.6, platelet count of 263,000. Sodium is 142, potassium is 4.5, chloride is 103, bicarb is 23, creatinine is 0.8. IMAGING STUDIES: 1. A CTA was done 3 days ago, which shows small infiltrate or atelectasis in left lower lung lobe, but no pulmonary embolism. 2. A CT scan of the head was done on 10/08/2016, which shows no acute disease or change from prior. ASSESSMENT AND PLAN: 1. Altered mental status secondary to global encephalopathy. Etiology is not apparently clear. 2. Transient episode of a cardiac arrest. The patient had a few rounds of chest compressions, but then immediately recovered pulse. They were about to intubate the patient. The patient started moving. Unsure if the patient might have suffered some level of anoxic brain injury on top of probably an old cognitive decline. 3. History of recent right endarterectomy with totally occluded left carotid. 4. Questionable seizures. The patient was started on Keppra. However, since here in the intensive care unit, the patient has not had any episodes, and he looks extremely lethargic. Not sure if any of the sedatives are causing prolongation of his altered mental status. I will therefore go ahead and discontinue his Ativan and Keppra, and only use Geodon as needed if he gets agitated. 5. Left lower lobe infiltrate with atelectasis. Unsure if there is some pneumonia growing. The patient has been started on meropenem, which is a very good antibiotic to cover for hospital- acquired infection. I will add pharmacy dose vancomycin to cover for possible methicillin- resistant staphylococcus aureus. In general, I think Mr. Capps is clinically stable. We are waiting to get a peripherally-inserted central catheter line, put him on some Clinimix with lipid infusion to get him some calories. We are going to do a urine culture, which I have not seen done. So far, blood culture that was done yesterday has been negative. We are going to get a peripherally-inserted central catheter line, start the patient on Clinimix due to the urine culture, and discontinue all the sedatives. The patient is also noted to have significant vitamin D deficiency. We will replace that once his enteral route is usable. cc: Osbaldo Wadsworth MD
[2016-10-11] MEDS: LOVENOX SUBQ SCH (10:56)
[2016-10-11] MEDS: NS IV SCH (10:57)
[2016-10-11] MEDS: FOLIC ACID IV SCH (10:57)
[2016-10-11] MEDS: LIPOSYN 20% 250 ML IV SCH (10:57)
[2016-10-11] MEDS: CLINIMIX E 4.25%-5% SOLUTION 1,000 ML IV SCH (10:57)
[2016-10-11] MEDS ORDERED: NS 250 ML ONE (10:59)
[2016-10-11] MEDS ORDERED: VANCOMYCIN 1,900 MG in NS 500 ML IV ONE (11:00)
[2016-10-11] MEDS: GEODON IM PRN ×2 (11:09→18:44)
[2016-10-11 11:41] LABS: INR 1.04
--- NOTE | 2016-10-11 15:26 | Diag Imaging Result Doc PS360 ---
EXAM: MRI BRAIN W/O CONTRAST HISTORY: Encephalopathy TECHNIQUE: MRI of the brain without gadolinium, T1 and T2 axial, T1 sagittal, DWI flare axial, gradient echo coronal, and exponential apparent diffusion coefficient axial. COMMENT: There is fairly extensive abnormal T2 weighted signal intensity in the periventricular white matter around the right atrium and in the subcortical white matter over the anterior parietal convexity. There is no evidence of bleed or abnormal extra-axial fluid collection. The subcortical white matter hyperintensity on the T2-weighted images demonstrates decreased apparent diffusion coefficient and restricted diffusion. This is consistent with an acute infarct. There is persistence the cavum septum pellucidum. 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 The findings were discussed with Roya Paredes MD at 10/11/2016 3:23 PM. Electronically signed by Rios Devi 10/11/2016 3:23 PM
[2016-10-12] MEDS: DUONEB (A & A) INH SCH ×6 (02:47→22:40)
[2016-10-12 04:48] LABS: MANUAL DIFF NEEDED? NO
[2016-10-12 04:55] LABS: BASO% 0.2 % (0.0-0.8); EOS# 0.14 X1000 (0.0-0.7); EOS% 1.4 % (0.0-10.0); HEMATOCRIT 35.5 % (42.0-52.0); HEMOGLOBIN 11.9 g/dL (14.0-18.0); IMM GRAN# 0.02 X1000 (0.0-0.04); IMM GRAN% 0.2 % (0.0-0.5); LYMPH# 2.19 X1000 (1.2-3.4); LYMPH% 22.6 % (20.5-51.1); MCH 29.9 PG (27-31); MCHC 33.5 g/dL (33-37); MCV 89.2 FL (81-99); MONO# 0.81 X1000 (0.11-0.59); MONO% 8.4 % (1.7-9.3); MPV 9.8 FL (7.4-10.4); NEUT% 67.2 % (42.2-75.2); PLT 238 X1000 (130-400); RBC 3.98 XMIL (4.7-6.1)
[2016-10-12 05:18] LABS: AGAP 14; BUN 10 mg/dL (8-22); CALCIUM 8.5 mg/dL (8.8-10.2); CHLORIDE 99 mmol/L (98-107); COSMO 277; SODIUM 135 mmol/L (136-145); TCO2 22 mmol/L (25-35)
[2016-10-12] MEDS: CLINIMIX E 4.25%-5% SOLUTION 1,000 ML IV SCH (05:42)
[2016-10-12] MEDS: NS 1,000 ML IV PRN (05:43)
[2016-10-12] MEDS: MERREM 500 MG in NS 50 ML IV SCH ×3 (05:44→22:02)
[2016-10-12] MEDS: PROTONIX IV SCH (06:01)
[2016-10-12] MEDS: LOVENOX SUBQ SCH (08:07)
--- NOTE | 2016-10-12 10:01 | PROGRESS NOTE ---
DATE: 10/12/2016 SUBJECTIVE: Today, the patient looks a whole lot more alert today. Denies any complaints. His speech is not very clearly understood but he is able to say a few things reasonable. OBJECTIVE: Vital signs: Blood pressure is 180/98, pulse 105, respirations 18 , and temperature 98.7 degrees. General: The patient is an 80-year-old male. He is in bed. He did not seems to be in any remarkable distress. HEENT: Mucosa is pink and moist. Anicteric. Acyanotic. Neck: Supple. Chest: Good air entry bilateral. Cardiovascular: Regular rate and rhythm. Abdomen: Soft, nontender. Extremities: No pedal edema. 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 He knows his name. He mumbles something that is not easily understandable, and does not follow any commands. He continues to be confused. LABORATORY DATA: WBC is 9.69, hemoglobin is 11.9, platelet count of 238,000. Chemistry: Sodium is 135, potassium is 5.4, chloride is 99, bicarb is 22, and glucose is 239. An MRI of the brain which was done yesterday shows subacute infarction in the right parietal cortex. ASSESSMENT: 1. Altered mental status secondary to global encephalopathy, etiology is apparently not clear. However an MRI of the brain shows a right parietal cortex infarct which I do not think is the sole reason for him to be altered. I think there are more medications and metabolic derangement involve. Today, patient is clearly a whole lot more alert so we are going to continue with symptomatic management. 2. Transient episode of cardiac arrest on the floor. 3. History of right endarterectomy with totally occluded left carotid and a new right parietal cortex infarct. Patient will continue with aspirin and statin whenever his mentation is clear enough. 4. Questionable seizures on the floor. There has not been any more weakness. We discontinued the Keppra. Patient has not had any more episodes. Looks more alert. Pending EEG. 5. Left lower lobe infiltrate with atelectasis. Patient is getting antibiotics for presumed pneumonia. In general, the patient is looking a little bit better today. We are waiting to take off the restrain and see how he does. We will also remove the Vance catheter. If he continues to be stable, we will transfer him to the floor. We will put in ice chips and sips of water to see if he will be able to tolerate. cc: Osbaldo Wadsworth MD [facility] [place]urry
[2016-10-12] MEDS: NS IV SCH (11:49)
[2016-10-12] MEDS: LIPOSYN 20% 250 ML IV SCH (11:49)
[2016-10-12] MEDS: VANCOMYCIN 1,400 MG in NS 250 ML IV SCH (11:49)
[2016-10-12] MEDS: FOLIC ACID IV SCH (11:49)
[2016-10-13] MEDS: DUONEB (A & A) INH SCH ×6 (04:26→22:44)
[2016-10-13] MEDS: CLINIMIX E 4.25%-5% SOLUTION 1,000 ML IV SCH (05:49)
[2016-10-13] MEDS: NS 1,000 ML IV PRN (05:49)
[2016-10-13] MEDS: MERREM 500 MG in NS 50 ML IV SCH ×3 (05:50→21:47)
[2016-10-13] MEDS: SODIUM CHLORIDE 0.9% INJ SCH (05:59)
[2016-10-13] MEDS: PROTONIX IV SCH (05:59)
[2016-10-13 07:04] LABS: AGAP 12; BUN 11 mg/dL (8-22); CALCIUM 8.9 mg/dL (8.8-10.2); CHLORIDE 103 mmol/L (98-107); COSMO 281; POTASSIUM 3.8 mmol/L (3.5-5.1); SODIUM 141 mmol/L (136-145); TCO2 26 mmol/L (25-35)
[2016-10-13] MEDS: LOVENOX SUBQ SCH (08:55)
[2016-10-13] MEDS: NS IV SCH (11:09)
[2016-10-13] MEDS: VANCOMYCIN 1,400 MG in NS 250 ML IV SCH (11:09)
[2016-10-13] MEDS: FOLIC ACID IV SCH (11:09)
[2016-10-13] MEDS: LIPOSYN 20% 250 ML IV SCH (11:49)
--- NOTE | 2016-10-13 13:09 | PROGRESS NOTE ---
DATE: 10/13/2016 SUBJECTIVE: Today, Mr. Capps referred to be doing fine. According to the daughter who spent the night with him, he was slightly agitated last night, but this morning he is a whole lot better. OBJECTIVE: Vital signs: Blood pressure is 194/82, pulse 105, respirations 20, temperature 97.7 degrees, and patient is saturating 98% on room air. General: Mr. Capps is an 80-year-old male. He was in bed and did not seem to be in any distress. HEENT: Mucosa pink and moist. Anicteric. Acyanotic. Neck: Supple. Chest: Good air entry bilateral. A few bibasilar crepitations. Cardiovascular: Regular rate and rhythm. Abdomen: Soft. Extremities: No pedal edema. Central Nervous System: Patient is awake and alert, able to follow some basic commands. Occasionally, he would be slightly drowsy and mumbled some words. LABORATORY DATA: Sodium is 141, potassium is 3.8, chloride is 103, bicarbonate is 26, creatinine is 0.68, vitamin D is 6.0. CURRENT MEDICATIONS: 1. Lovenox. 2. Clinimix with lipid infusion. 3. Folic acid. 4. Meropenem. 5. Vancomycin. 6. Geodon. ASSESSMENT: 1. Altered mental status secondary to global encephalopathy. Etiology is not apparently clear. We think it is due to toxic metabolic encephalopathy. 2. Right parietal cortex infarct. We will start the patient now on statin and aspirin, since he has passed the swallow evaluation. 3. Transient episode of cardiac arrest on the floor. 4. History of right endarterectomy with totally occluded left carotid. Patient has a right parietal cortex infarct. Not quite sure if this is secondary to the procedure that he underwent. 5. Questionable seizures. The patient was initially started on Keppra. We are still pending the EEG report. He is no longer on any antiseizure medications. 6. Left lower lobe infiltrates, questionable pneumonia versus atelectasis. So far, white count has normalized. Blood cultures and urine culture have normalized. Patient does not show any signs now of infection. I will therefore go ahead and will repeat the chest x-ray for tomorrow. If the infiltrate is improved, we will discontinue the antibiotics. 7. Uncontrolled hypertension. We will start the patient on low-dose PETRA for blood pressure control. 8. Vitamin D deficiency. We will start to replace this. So, in general, I think Mr. Capps is doing a lot better. He already has had a swallow evaluation and a mechanical soft diet has been recommended. We will restart the patient on some of his oral medications, replace his vitamins, start him on statin and aspirin for the stroke. We will also get Physical Therapy to work with the patient. Anticipate the patient being discharged very soon. Depending on physical therapy evaluation, we will know if he will need to go into rehabilitation or can go home with home health. cc: Osbaldo Wadsworth MD MTDD
[2016-10-13] MEDS: NORVASC PO SCH (13:17)
[2016-10-13] MEDS: VITAMIN D PO SCH (13:17)
[2016-10-13] MEDS: ASPIRIN PO SCH (13:17)
--- NOTE | 2016-10-13 14:02 | EEG REPORT ---
DATE: 10/11/2016 PROCEDURE: Electroencephalogram. REFERRING PHYSICIAN: Dr. Paredes. EEG #: [id number]. SLIP COVER SEWER: Kirsten Abdi. BACKGROUND INFORMATION: Technique: A routine portable EEG is obtained with one additional channel for EKG. HISTORY OF PRESENT ILLNESS: An 80-year-old male admitted with confusion and one shaking spell at home. An EEG is obtained to evaluate encephalopathy and seizure. Medications: Aspirin, Ativan, B 12, DuoNebs, folic acid, Keppra, meropenem, Norvasc, Pravachol, Protonix, Zofran. Also the patient was given Geodon prior to the study. EEG FINDINGS: A posterior dominant alpha rhythm is notably absent. The background consists of mixed frequencies alpha, beta and theta with less frequent delta noted. No focal slowing noted. No epileptiform discharges and no seizures seen. Hyperventilation was not performed. Photic stimulation did not induce a driving response. The patient has brief periods of drowsiness, but no stage II sleep is seen. The EKG demonstrates regular R-R interval. IMPRESSION AND RECOMMENDATIONS: Abnormal routine portable EEG due to: 1. [id number] background slowing indicative of a [id number] encephalopathy. Generalized slowing is a nonspecific finding that can be seen in processes that diffusely affect the cerebrum, including toxic, metabolic, post hypoxic, pharmacologic or infectious conditions. 2. No epileptiform discharges and no seizures are noted on this study. This does not rule out an underlying seizure disorder. Clinical correlation is advised. cc: MD Roya Wheeler MD [facility]
[2016-10-13] MEDS: GEODON IM PRN (20:29)
[2016-10-13] MEDS: LIPITOR PO SCH ×2 (20:30→21:04)
[2016-10-14] MEDS: CLINIMIX E 4.25%-5% SOLUTION 1,000 ML IV SCH (02:11)
[2016-10-14] MEDS: DUONEB (A & A) INH SCH ×6 (03:50→22:47)
[2016-10-14] MEDS: NS 1,000 ML IV PRN (05:06)
[2016-10-14] MEDS: MERREM 500 MG in NS 50 ML IV SCH ×3 (05:53→23:05)
[2016-10-14] MEDS: PROTONIX IV SCH (06:00)
[2016-10-14] MEDS: SODIUM CHLORIDE 0.9% INJ SCH (06:00)
--- NOTE | 2016-10-14 07:14 | Diag Imaging Result Doc PS360 ---
EXAM: CHEST-PORTABLE HISTORY: dyspnea TECHNIQUE: AP portable at 0500 COMMENT: There is a right-sided PICC line with its tip just above the right atrium. The inspiration is suboptimal. The left lower lobe appears somewhat clearer than it did on 10/09/2016. IMPRESSION: Poor inspiration. Improved pulmonary edema or pneumonia left lower lobe. Electronically signed by Rios Devi 10/14/2016 7:12 AM
[2016-10-14 07:15] LABS: MANUAL DIFF NEEDED? NO
[2016-10-14 07:21] LABS: BASO% 0.2 % (0.0-0.8); EOS# 0.15 X1000 (0.0-0.7); EOS% 1.6 % (0.0-10.0); HEMATOCRIT 36.1 % (42.0-52.0); HEMOGLOBIN 12.2 g/dL (14.0-18.0); IMM GRAN# 0.02 X1000 (0.0-0.04); IMM GRAN% 0.2 % (0.0-0.5); LYMPH% 27.1 % (20.5-51.1); MCH 29.5 PG (27-31); MCHC 33.8 g/dL (33-37); MCV 87.4 FL (81-99); MONO# 0.74 X1000 (0.11-0.59); MONO% 7.7 % (1.7-9.3); MPV 9.3 FL (7.4-10.4); NEUT% 63.2 % (42.2-75.2); PLT 254 X1000 (130-400); RBC 4.13 XMIL (4.7-6.1)
[2016-10-14 07:39] LABS: AGAP 11; ALBUMIN 2.9 g/dL (3.5-5.0); ALKALINE PHOSPHATASE 39 U/L (32-122); BUN 10 mg/dL (8-22); CALCIUM 8.5 mg/dL (8.8-10.2); CHLORIDE 101 mmol/L (98-107); COSMO 275; GOT 17 U/L (10-34); GPT 6 U/L (10-44); POTASSIUM 3.6 mmol/L (3.5-5.1); SODIUM 138 mmol/L (136-145); TCO2 26 mmol/L (25-35); TOTAL BILIRUBIN 0.32 mg/dL (0.20-1.00); TOTAL PROTEIN 5.9 g/dL (6.3-8.3)
[2016-10-14] MEDS: PRINIVIL PO SCH (10:00)
[2016-10-14] MEDS: NORVASC PO SCH (10:01)
[2016-10-14] MEDS: LOVENOX SUBQ SCH (10:01)
[2016-10-14] MEDS: VITAMIN D PO SCH (10:01)
[2016-10-14] MEDS: ASPIRIN PO SCH (10:01)
[2016-10-14] MEDS ORDERED: NS 1,000 ML IV PRN (10:51)
--- NOTE | 2016-10-14 11:32 | PROGRESS NOTE ---
DATE: 10/14/2016 SUBJECTIVE: Today the daughter told me that Mr. Capps was able to eat about 75 % of his breakfast by himself. However, he continues to be visually hallucinating occasionally. OBJECTIVE: Vital signs: Blood pressure is 170/80, pulse of 88, respiration is 20, temperature 97.7 degrees. General: Mr. Capps is an 80-year-old male. He is in bed. He did not seem to be in any distress. HEENT: Mucosa is pink and moist. Anicteric. Acyanotic. Neck: Supple. Chest: Good air entry bilateral. No crepitations. No rhonchi. Cardiovascular: Regular rate and rhythm. Abdomen: Soft, nontender. Extremities: No pedal edema. YARD ASSOCIATE: Patient is awake, alert, oriented to person and to place. The patient occasionally shows signs of being boisterous, wanting to get out of bed and occasionally he will refer to things in front of him that are nonexistent. DIAGNOSTIC STUDIES: An EEG report shows [id number] background slowing indicative of mild to moderate encephalopathy. No epileptiform discharges and no seizures are noted on this study. ASSESSMENT: 1. Altered mental status secondary to global encephalopathy. 2. Right parietal cortex infarct. The patient is starting aspirin. 3. Transient episode of cardiac arrest on the floor. 4. 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 Patient has a right parietal cortex infarct. I think this is subsequent to the procedure which was done. 5. Left lower lobe infiltrates, questionable pneumonia versus atelectasis. A repeat chest x-ray this morning shows improved pulmonary atelectasis or pneumonia in the left lower lobe. Patient is currently on vancomycin and meropenem. Will discontinue the IV medication and put the patient on p.o. Augmentin to complete a total of 10 days of antibiotics. 6. Hypertension. PETRA was ordered yesterday. It looks a little bit better. We will continue to monitor. 7. Vitamin D deficiency. Patient is now on cholecalciferol. 8. Delirium with baseline dementia noted. PLAN: So in general I think Mr. Capps is progressively improving. His mentation is getting better. Has episodes of agitation and delirium which I think is going to be like that for some time. Would encourage the patient to participate in physical therapy. Social work is also working on rehab placement for the patient. Anticipate the patient being discharged possibly on Monday. The family has expressed a preference to [facility] [place]. cc: Osbaldo Wadsworth MD MTDD
[2016-10-14] MEDS: NS IV SCH (13:29)
[2016-10-14] MEDS: FOLIC ACID IV SCH (13:29)
[2016-10-14] MEDS: VANCOMYCIN 1,700 MG in NS 250 ML IV SCH (13:29)
[2016-10-14] MEDS: LIPITOR PO SCH (20:23)
[2016-10-15] MEDS: DUONEB (A & A) INH SCH ×6 (03:38→23:18)
[2016-10-15] MEDS: SODIUM CHLORIDE 0.9% INJ SCH (06:07)
[2016-10-15] MEDS: PROTONIX IV SCH (06:07)
[2016-10-15] MEDS: MERREM 500 MG in NS 50 ML IV SCH (06:08)
[2016-10-15] MEDS: NORVASC PO SCH (10:18)
[2016-10-15] MEDS: ASPIRIN PO SCH (10:18)
[2016-10-15] MEDS: VITAMIN D PO SCH (10:18)
[2016-10-15] MEDS: PRINIVIL PO SCH (10:18)
[2016-10-15] MEDS: LOVENOX SUBQ SCH (10:18)
[2016-10-15] MEDS: FOLIC ACID IV SCH (10:19)
[2016-10-15] MEDS: NS IV SCH (10:19)
[2016-10-15] MEDS: VANCOMYCIN 1,700 MG in NS 250 ML IV SCH (12:01)
--- NOTE | 2016-10-15 15:06 | PROGRESS NOTE ---
DATE: 10/15/2016 SUBJECTIVE: Today Mr. Capps was sitting up on the side of the table trying to participate in PT. He was extremely drowsy this morning. According to the daughter he had a very rough night. He barely slept. OBJECTIVE: Vital signs: Blood pressure is 149/85, pulse 97, respirations 20, temperature 98.6 degrees. PHYSICAL EXAM: General: Mr. Capps is an 80-year-old male. He was sitting up at the edge of the bed somehow half asleep, was not very attentive, not participating very well with physical therapy. Chest: Was clear. Cardiovascular: Regular rate and rhythm. Abdomen: Soft. Extremities: No pedal edema. 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 LABORATORY DATA: None for today. ASSESSMENT: 1. Altered mental status secondary to global encephalopathy. 2. Right parietal cortex infarct. 3. Transient episode of cardiac arrest on the floor. 4. 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 5. Left lower lobe pneumonia. 6. Hypertension. 7. Vitamin D deficiency. 8. Delirium with baseline dementia. PLAN: 1. We are going to continue the current p.o. antibiotics to complete a total of 10 days of antibiotics. The patient is extremely drowsy this morning I guess because he did not get a very good night's sleep. Will put him on melatonin also to help with his sleep at night. I advised physical therapy to let him rest and try and see if he can come back later on today to help him with the physical therapy. 2. We are still pending for social staff worker arrangement for rehab placement. cc: Osbaldo Wadsworth MD
[2016-10-15] MEDS: LIPITOR PO SCH (20:03)
[2016-10-15] MEDS: MELATONIN PO SCH (20:03)
[2016-10-15] MEDS: AUGMENTIN PO SCH (20:03)
[2016-10-16] MEDS: DUONEB (A & A) INH SCH ×6 (05:00→23:15)
[2016-10-16] MEDS: VITAMIN D PO SCH (09:04)
[2016-10-16] MEDS: PRINIVIL PO SCH (09:04)
[2016-10-16] MEDS: LOVENOX SUBQ SCH (09:04)
[2016-10-16] MEDS: NORVASC PO SCH (09:04)
[2016-10-16] MEDS: ASPIRIN PO SCH (09:04)
[2016-10-16] MEDS: AUGMENTIN PO SCH ×2 (09:04→20:28)
--- NOTE | 2016-10-16 17:49 | PROGRESS NOTE ---
DATE: 10/16/2016 SUBJECTIVE: Mr. Capps is awake and alert and doing better. Still pretty weak. His family would like to try to get him to rehab but they are pleased with his improvement. Still has confusion and some delirium but not near as often or as profound. OBJECTIVE: Vital signs: Temp 97.8 degrees, pulse 92, respirations 20, blood pressure 141/70. Neck: CVP less than 6 cm. Lungs: Clear in all lung fiore. Cardiovascular: Regular rhythm and rate without murmur or S3. Abdomen: Soft. Skin: Warm and dry. : From yesterday urine output was 2.8 L. LAB: Reviewed from the 2nd, all looks good. ASSESSMENT: 1. Altered mental status secondary to global encephalopathy. 2. Right parietal cortex infarct. 3. Transient episode of cardiac arrest on the floor. 4. History of right endarterectomy, total occluded left carotid. 5. Left lower lobe pneumonia. 6. Hypertension. 7. Vitamin D deficiency. 8. Delirium, baseline mild dementia. PLAN: He is doing better. Will try and see if we can get him to rehab tomorrow. REVIEW OF HIS ORDERS: I do not see any change at this point. Lisinopril 10 mg a day, melatonin 3 mg at bedtime, Geodon 10 mg IM q.4 hours p.r.n., Apresoline 10 mg IV q.6 hours p.r.n., Lipitor 40 mg at bedtime, aspirin 81 mg a day. He is on amoxicillin and clavulanic acid 875 mg p.o. q.12 hours, Norvasc 5 mg daily, and albuterol ipratropium treatments q.4 hours p.r.n. cc: Darwin Ibarra MD
[2016-10-16] MEDS: MELATONIN PO SCH (20:28)
[2016-10-16] MEDS: LIPITOR PO SCH (20:28)
[2016-10-17] MEDS: DUONEB (A & A) INH SCH ×6 (08:04→22:48)
[2016-10-17] MEDS: PRINIVIL PO SCH (09:26)
[2016-10-17] MEDS: AUGMENTIN PO SCH ×2 (09:26→20:38)
[2016-10-17] MEDS: VITAMIN D PO SCH (09:26)
[2016-10-17] MEDS: NORVASC PO SCH (09:26)
[2016-10-17] MEDS: LOVENOX SUBQ SCH (09:26)
[2016-10-17] MEDS: ASPIRIN PO SCH (09:26)
[2016-10-17] MEDS ORDERED: STERILE WATER INJ. ONE (13:22)
--- NOTE | 2016-10-17 15:03 | PROGRESS NOTE ---
DATE: 10/17/2016 SUBJECTIVE: Mr. Capps was trying to get out of bed. He is awake and alert. He knows where he is and is asking about his car. Wanted talk to his . OBJECTIVE: Vital signs: Temperature 97.9 degrees, pulse 83, respirations 20, blood pressure 151/63. Lungs: Clear in all lung fiore. Cardiovascular: Regular rhythm and rate without murmur S3. Abdomen: Soft. Skin: Warm and dry. Good urine output. LAB: Reviewed from the 2nd. White count was 9,520, hematocrit 36, platelet count 254,000. Blood sugars have been running 60-90. ASSESSMENT AND PLAN: 1. Altered mental status secondary global encephalopathy. Still has at times confusion. 2. Partial right parietal cortex infarct which is stable. Neurologically improving. 3. Transient episode of cardiac arrest on the floor. 4. History of right endarterectomy, total occluded left carotid. He had an endarterectomy about 6 weeks ago. 5. Left lower lobe pneumonia. 6. Hypertension. 7. Vitamin D deficiency. 8. Delirium with underlying dementia. 9. In looking over his orders. He is getting melatonin at night. He is on Norvasc 5 mg a day, aspirin 81 mg a day, Lipitor 40 mg a day. Review of his recent lab, pretty unremarkable. I wonder if he would benefit from trying a little bit of Seroquel. I will discuss with the family. We are trying to get him to rehab. cc: Darwin Ibarra MD
--- NOTE | 2016-10-17 18:08 | PROGRESS NOTE ---
DATE: 10/17/2016 He had some confusion sitting on the bed. He wanted to get up but overall he is stronger. He is eating some. He remains afebrile so making some progress. I talked to the family. They do not really want me to try adding any medicine, we are going to see if just a increase in his rehab was going to improve. I am going to hold off sending him to rehab at this point, they do want us to use physical strength if necessary. I do not see anything to change way his medication, his sugars still running a little on the low side, looks only really normal sugars is what he has so blood pressure looks good. cc: Darwin Ibarra MD
[2016-10-17] MEDS: GEODON IM PRN (20:38)
[2016-10-17] MEDS: MELATONIN PO SCH (20:38)
[2016-10-17] MEDS: LIPITOR PO SCH (20:38)
[2016-10-18] MEDS: DUONEB (A & A) INH SCH ×6 (03:53→23:16)
[2016-10-18] MEDS: LOVENOX SUBQ SCH ×2 (09:04→09:07)
[2016-10-18] MEDS: AUGMENTIN PO SCH ×2 (09:04→21:42)
[2016-10-18] MEDS: ASPIRIN PO SCH (09:04)
[2016-10-18] MEDS: VITAMIN D PO SCH (09:04)
[2016-10-18] MEDS: PRINIVIL PO SCH (09:04)
[2016-10-18] MEDS: NORVASC PO SCH (09:04)
--- NOTE | 2016-10-18 13:27 | PROGRESS NOTE ---
DATE: 10/18/2016 Mr. Capps is actually having a better day. He did have more confusion last night. I think they did give him some Haldol or Geodon and it has been helpful so I think I am going to try him on some Zyprexa at nighttime and just see if that will help. EXAM: Today temp 98.0 degrees, pulse 84, respirations 18, blood pressure 151/62.Pupils: Equal, round. Lungs: Clear in all lung fiore. Cardiovascular: Regular rhythm rate without murmur or S3. Abdomen: Soft. Skin: Warm and dry. LABORATORY DATA: Blood sugars 96, 115, 116. ASSESSMENT/PLAN: 1. Altered mental status with global encephalopathy. This is improved. Generally stronger. His cognitive ability has improved as well. 2. Underlying dementia with some delirium. I am going to start him on routine Zyprexa at night to help with . 3. Partial right parietal complex infarct which is stable. 4. Transient cardiac arrest on the floor. 5. History of recent right endarterectomy. 6. Left lower lobe pneumonia which is improved and resolved. 7. Hypertension. 8. Vitamin D deficiency. Continue physical therapy. I am going to try some Zyprexa at nighttime. cc: Darwin Ibarra MD
[2016-10-18] MEDS ORDERED: STERILE WATER INJ. ONE (13:34)
[2016-10-18] MEDS: GEODON IM PRN ×2 (13:38→23:08)
[2016-10-18] MEDS: ZYPREXA PO SCH (21:42)
[2016-10-18] MEDS: LIPITOR PO SCH (21:42)
[2016-10-18] MEDS: MELATONIN PO SCH (21:42)
[2016-10-19] MEDS: DUONEB (A & A) INH SCH ×6 (03:46→22:47)
[2016-10-19] MEDS: LOVENOX SUBQ SCH (10:51)
--- NOTE | 2016-10-19 11:30 | PROGRESS NOTE ---
DATE: 10/19/2016 SUBJECTIVE: The patient is resting in bed. Per the daughter he has been asleep since 1:30 a.m. He did wake up to drink some juice but then he fell back to sleep. OBJECTIVE: Vital Signs: Temperature is 98.2 degrees, heart rate 72, respiration 19, blood pressure 145/78, O2 is 97% on room air. PHYSICAL EXAM: Mr. Capps is an 80-year-old, male, who is lying in bed. In no acute distress.HEENT: Atraumatic normocephalic. CV: S1, S2 appreciated. Regular rate and rhythm. Pulmonary: Bilateral breath sounds. Clear to auscultation. GI: Soft nontender nondistended. Positive bowel sounds. Skin: Warm, dry, and intact. No new laboratory or diagnostic data. ASSESSMENT AND PLAN: 1. Altered mental status with global encephalopathy. This is improved. Patient was started on Zyprexa, still requiring p.r.n. Geodon. 2. Underlying dementia with some delirium. Patient was started on Zyprexa. 3. Partial right parietal complex infarct stable. 4. Transient cardiac arrest on the floor. Stable. 5. History of recent right endarterectomy stable. 6. Left lower lobe pneumonia. Improved and resolved. 7. Hypertension. 8. Vitamin D deficiency. Continue physical therapy. 9. Disposition: Possibly to rehab after the weekend. Further recommendations to follow physician evaluation. Dictated by BRITTANY Ga for Darwin Ibarra MD cc: Darwin Ibarra MD
[2016-10-19] MEDS: PRINIVIL PO SCH (12:51)
[2016-10-19] MEDS: ASPIRIN PO SCH (12:51)
[2016-10-19] MEDS: AUGMENTIN PO SCH ×2 (12:51→22:52)
[2016-10-19] MEDS: VITAMIN D PO SCH (12:51)
[2016-10-19] MEDS: NORVASC PO SCH (12:51)
[2016-10-19] MEDS: MELATONIN PO SCH (22:52)
[2016-10-19] MEDS: LIPITOR PO SCH (22:53)
[2016-10-19] MEDS: ZYPREXA PO SCH (22:53)
[2016-10-20] MEDS ORDERED: STERILE WATER INJ. ONE (01:47)
[2016-10-20] MEDS: GEODON IM PRN (01:57)
[2016-10-20] MEDS: DUONEB (A & A) INH SCH ×2 (03:20→08:07)
--- NOTE | 2016-10-20 13:19 | PROGRESS NOTE ---
DATE: 10/20/2016 Mr. Capps had some more agitation last night. He tried to get out of bed. He was given some more Geodon and then he finally fell asleep and then just finally woke up. So I am going to try to move the Zyprexa back to be given to him about 6 o'clock. He is eating. He seems overall to be doing a little better. Getting stronger. Temp 98.0 degrees, pulse 74, respirations 18, blood pressure 137/74.Lungs: Are clear in all lung fiore. Cardiovascular: Regular rhythm and rate without murmur or S3. Abdomen: Soft. Skin: Is warm and dry. LABS: No new lab from today. I think I will check some more tomorrow. Blood sugar has been 124, 106, 186. ASSESSMENT AND PLAN: 1. Altered mental status. Global encephalopathy seems to be improving. We are going to increase the Zyprexa to take about 6 o'clock. 2. Underlying dementia with some delirium. 3. Right parietal complex infarct which is stable. 4. Transient cardiac arrest on the floor. 5. History of recent right endarterectomy. 6. Left lower lobe pneumonia which is improved and resolved. 7. Hypertension. 8. Vitamin D deficiency. 9. Disposition. Trying to figure out what to do. His has dementia which is very severe and end-stage and they are figuring out where probably both of them will need placement. So will have discussions with the daughters and social service. I think he is he is not ready to go to rehab at this point, maybe he can go on Monday. We need to do some more adjustments of his medications. cc: Darwin Ibarra MD
[2016-10-20] MEDS: PRINIVIL PO SCH (13:49)
[2016-10-20] MEDS: AUGMENTIN PO SCH ×2 (13:49→21:22)
[2016-10-20] MEDS: ASPIRIN PO SCH (13:49)
[2016-10-20] MEDS: VITAMIN D PO SCH (13:49)
[2016-10-20] MEDS: LOVENOX SUBQ SCH (13:50)
[2016-10-20] MEDS: NORVASC PO SCH (13:50)
[2016-10-20] MEDS: ZYPREXA PO SCH (18:32)
[2016-10-20] MEDS: LIPITOR PO SCH (21:22)
[2016-10-20] MEDS: MELATONIN PO SCH (21:22)
[2016-10-21] MEDS: DUONEB (A & A) INH SCH ×8 (05:21→22:57)
[2016-10-21] MEDS: VITAMIN D PO SCH (10:42)
[2016-10-21] MEDS: LOVENOX SUBQ SCH (10:42)
[2016-10-21] MEDS: NORVASC PO SCH (10:42)
[2016-10-21] MEDS: ASPIRIN PO SCH (10:43)
[2016-10-21] MEDS: PRINIVIL PO SCH (10:43)
[2016-10-21] MEDS: AUGMENTIN PO SCH ×2 (10:43→20:53)
[2016-10-21] MEDS: ZYPREXA PO SCH (17:30)
[2016-10-21] MEDS ORDERED: KLONOPIN PO SCH (18:00)
--- NOTE | 2016-10-21 18:02 | PROGRESS NOTE ---
DATE: 10/21/2016 SUBJECTIVE: Mr. Capps has had better day, last night he still was pretty agitated and had to give him Geodon. I talked to family, I am going to try and add a little Klonopin tonight and see if it will help. OBJECTIVE: Vital signs: Temperature 98.1 degrees, pulse 81 respirations 18, blood pressure 136/70. Lungs: Are clear in all lung fiore. Cardiovascular: Regular rhythm, rate without murmur or S3. Abdomen: Soft. Skin: Is warm and dry. DATA: Blood sugar is 85, 92. ASSESSMENT AND PLAN: 1. Altered mental status, global encephalopathy seems to be improving, I did increase the Zyprexa and actually he has taken it an early time 6 o'clock. I am going to add Klonopin at 6 as well see if will help, maybe do the Klonopin at 5 o'clock. 2. Underlying dementia with delirium. 3. Right parietal complex infarct which is stable. 4. Transient cardiac arrest on the floor. 5. History of recent right endarterectomy. 6. Left lower lobe pneumonia which is improved and resolved. 7. Hypertension. 8. Vitamin D deficiency. 9. Continue to work on disposition. Hope to get him to snf on Monday. cc: Darwin Ibarra MD
[2016-10-21] MEDS: LIPITOR PO SCH (20:53)
[2016-10-21] MEDS: MELATONIN PO SCH (20:53)
[2016-10-22] MEDS: DUONEB (A & A) INH SCH ×5 (04:49→20:07)
[2016-10-22] MEDS: AUGMENTIN PO SCH (09:09)
[2016-10-22] MEDS: ASPIRIN PO SCH (09:10)
[2016-10-22] MEDS: PRINIVIL PO SCH (09:10)
[2016-10-22] MEDS: LOVENOX SUBQ SCH (09:10)
[2016-10-22] MEDS: NORVASC PO SCH (09:10)
[2016-10-22] MEDS: VITAMIN D PO SCH (09:10)
--- NOTE | 2016-10-22 12:36 | PROGRESS NOTE ---
DATE: 10/22/2016 SUBJECTIVE: Still more confusion last night. It may have been a little better. He wakes up. He is a little confused this morning. Seems to be better during the day. He is getting his bath at the present time. OBJECTIVE: Vital Signs: Temperature 98.2 degrees, pulse 77, blood pressure 155/68. Lungs are clear in all lung fiore. Cardiovascular: Regular rhythm and rate without murmur or S3. Abdomen soft. Skin is warm and dry. LABORATORY DATA: Blood sugars looked normal. I think we can stop his fingersticks. ASSESSMENT AND PLAN: 1. Altered mental status. Global encephalopathy seems to be improving. Increased, I think, the Zyprexa. We added Klonopin, and would keep this regimen at the present time. 2. Underlying dementia and some delirium. Still confusion, but he is less agitated. 3. Right partial complex infarct which is stable. 4. Transient cardiac arrest on the floor. 5. History of recent right endarterectomy. 6. Left lower lobe pneumonia which is improved, resolved. 7. Hypertension. 8. Vitamin D deficiency. Still working on disposition on where we are going to go. The daughters were looking for opportunities. They need to try and place their mother as well. We will stop his amoxicillin We will continue the Zyprexa. I think I will try and go up on the Zyprexa to a 10 to see if that makes any difference. cc: Darwin Ibarra MD
[2016-10-22] MEDS ORDERED: STERILE WATER INJ. ONE (14:04)
[2016-10-22] MEDS: GEODON IM PRN (14:13)
[2016-10-22] MEDS: ZYPREXA PO SCH (17:54)
[2016-10-22] MEDS: KLONOPIN PO SCH (17:54)
[2016-10-23] MEDS: DUONEB (A & A) INH SCH ×6 (00:03→23:40)
[2016-10-23] MEDS: MELATONIN PO SCH ×2 (05:20→22:32)
[2016-10-23] MEDS: LIPITOR PO SCH ×2 (05:20→22:31)
[2016-10-23] MEDS: NORVASC PO SCH (09:25)
[2016-10-23] MEDS: ASPIRIN PO SCH (09:25)
[2016-10-23] MEDS: LOVENOX SUBQ SCH (09:25)
[2016-10-23] MEDS: VITAMIN D PO SCH (09:25)
[2016-10-23] MEDS: PRINIVIL PO SCH (09:25)
--- NOTE | 2016-10-23 15:56 | PROGRESS NOTE ---
DATE: 10/23/2016 SUBJECTIVE: He had a little bit of a rough day yesterday. Was wanting to get out of the bed and agitated this morning. He appears to be cooperative and awake. I did go up on his Zyprexa and I went up on his Klonopin yesterday evening. Daughter is at the bedside. They did move him to a private room which should be helpful. OBJECTIVE: Vital signs: Temp 98.2 degrees, pulse 85, respirations 16, blood pressure 136/67. Lungs: Clear in all lung fiore. Cardiovascular: Regular rhythm and rate without murmur or S3. Abdomen: Soft. Skin: Warm and dry. LAB: Blood sugar 85, 83, 72. ASSESSMENT AND PLAN: 1. Altered mental status, global encephalopathy. Seems to be improving. He still has periods of confusion. He seems to have a little bit of paranoia as well. I increased his Zyprexa and Klonopin yesterday. We are hoping to get him ready so he can go to rehab. 2. Underlying dementia with some delirium. 3. Right partial complex infarct, stable. 4. Transient cardiac arrest on the floor. 5. History of recent right endarterectomy a couple months ago. 6. Left lower lobe pneumonia which has resolved. 7. Hypertension. 8. Vitamin D deficiency. REVIEW OF ORDERS: I do not see any change at this point. He gets Geodon 10 mg IM q.4 p.r.n. He is on Zyprexa which I have increased to 10 mg p.o. and he gets that at 6 o'clock in the evening, melatonin 3 mg at bedtime. I believe I am going to stop the melatonin. Prinivil 10 mg a day, Lovenox 40 mg subcutaneously q.24 hours, Klonopin 1 mg daily at 6 o'clock p.m., vitamin D3 2000 units p.o. daily, Lipitor 40 mg at bedtime, aspirin 81 mg a day, Norvasc 5 mg a day. Blood pressures are doing well. cc: Darwin Ibarra MD
[2016-10-23] MEDS: ZYPREXA PO SCH (17:36)
[2016-10-23] MEDS: KLONOPIN PO SCH (17:36)
[2016-10-24] MEDS: DUONEB (A & A) INH SCH ×2 (04:05→20:15)
[2016-10-24 06:43] LABS: AGAP 13; ALBUMIN 2.9 g/dL (3.5-5.0); ALKALINE PHOSPHATASE 44 U/L (32-122); BUN 12 mg/dL (8-22); CALCIUM 8.7 mg/dL (8.8-10.2); CHLORIDE 103 mmol/L (98-107); COSMO 285; GOT 16 U/L (10-34); GPT 8 U/L (10-44); POTASSIUM 3.2 mmol/L (3.5-5.1); SODIUM 144 mmol/L (136-145); TCO2 28 mmol/L (25-35); TOTAL BILIRUBIN 0.41 mg/dL (0.20-1.00); TOTAL PROTEIN 6.2 g/dL (6.3-8.3)
[2016-10-24 08:53] LABS: FREE T4 1.22 ng/dL (0.93-1.70)
[2016-10-24] MEDS: PRINIVIL PO SCH (09:41)
[2016-10-24] MEDS: ASPIRIN PO SCH (09:41)
[2016-10-24] MEDS: NORVASC PO SCH (09:41)
[2016-10-24] MEDS: LOVENOX SUBQ SCH (09:41)
[2016-10-24] MEDS: VITAMIN D PO SCH (09:41)
--- NOTE | 2016-10-24 17:51 | PROGRESS NOTE ---
DATE: 10/24/2016 SUBJECTIVE: Mr. Capps apparently had a better night. He did not try and get out of bed. He is not agitated. He is waking up. He appears to be calm and a little bit lethargic this morning. OBJECTIVE: Vital signs: Temperature 99.4 degrees, pulse 98, respirations 18, blood pressure 130/73. O2 saturation 98%. Weight 180 pounds. HEENT: Pupils are equal, round. Neck: CVP less than 6 cm. Lungs: Clear in all lung fiore. Cardiovascular: Regular rhythm and rate without murmur or S3. : Urine output is good by report. LAB: From the 2nd reviewed. Had some electrolytes today. Sodium 144, potassium 3.2, chloride 103, bicarb 28, BUN 12, creatinine 0.7, blood sugars 185, 92, 78. C-reactive protein was 31, a little bit high. ASSESSMENT AND PLAN: 1. Altered mental status, global encephalopathy. He also appeared to have a right partial complex infarct. We have been trying to help with his delirium. He has a strong man, trying to get out of bed. This is the 1st evening he has not tried to do that. Hopefully he can be cooperative with physical therapy and we can continue. I have gone up on his Zyprexa and his Klonopin. 2. He has had a subacute infarction in the right parietal cortex, aware. He has had a recent carotid endarterectomy. Trying to improve his p.o. intake which has improved. Blood pressure looks good. He had a cardiac arrest on the floor. Did not require intubation. Daughters are looking for placement but we have to make sure he is able to be cooperative and he has improved. Continue present regimen. See how we do with physical therapy and sleeping. I think I am going to stop his melatonin. cc: Darwin Ibarra MD
[2016-10-24] MEDS: ZYPREXA PO SCH (18:50)
[2016-10-24] MEDS: KLONOPIN PO SCH (18:50)
[2016-10-24] MEDS: LIPITOR PO SCH (22:00)
[2016-10-25] MEDS: DUONEB (A & A) INH SCH ×8 (00:24→23:49)
[2016-10-25] MEDS: NORVASC PO SCH (09:54)
[2016-10-25] MEDS: VITAMIN D PO SCH (09:54)
[2016-10-25] MEDS: ASPIRIN PO SCH (09:54)
[2016-10-25] MEDS: LOVENOX SUBQ SCH (09:55)
[2016-10-25] MEDS: PRINIVIL PO SCH (09:55)
--- NOTE | 2016-10-25 13:25 | PROGRESS NOTE ---
DATE: 10/25/2016 Mr. Capps had a pretty good night. Did not try and get out of bed but he has not able to cooperate much with physical therapy. Just very weak and very unsure of himself. Temp 98.3 degrees, pulse 80, respirations 8, blood pressure 121/51.HEENT: Pupils are equal, round. Lungs: Are clear in all lung fiore. Cardiovascular: Regular rhythm and rate without murmur or S3. Weight 176 pounds. O2 saturation 93%. Blood sugars 82, 91, 100. ASSESSMENT AND PLAN: 1. Altered mental status. Global encephalopathy. Seems to be doing better. Hopefully we can stop his restraints. Right now he has significant sundowning and tries to get out of bed. This is improved. We have increased his Zyprexa and he is on Klonopin. 2. Underlying dementia. 3. Recent right parietal cortex infarct CVA. He is status post right carotid artery endarterectomy. Review of his orders. I do not see any change. At present time he is taking Zyprexa 10 mg p.o. q.6 o'clock p.m. Klonopin 1 mg p.o. every evening. He is on Norvasc 5 mg a day. Aspirin 81 mg a day. Vitamin D3 2000 units daily. cc: Darwin Ibarra MD
[2016-10-25] MEDS: KLONOPIN PO SCH (18:29)
[2016-10-25] MEDS: ZYPREXA PO SCH (18:29)
[2016-10-25] MEDS: LIPITOR PO SCH (22:00)
[2016-10-26] MEDS: DUONEB (A & A) INH SCH ×6 (04:01→23:50)
[2016-10-26] MEDS: VITAMIN D PO SCH (09:17)
[2016-10-26] MEDS: NORVASC PO SCH (09:17)
[2016-10-26] MEDS: PRINIVIL PO SCH (09:17)
[2016-10-26] MEDS: LOVENOX SUBQ SCH (09:18)
[2016-10-26] MEDS: ASPIRIN PO SCH (09:18)
--- NOTE | 2016-10-26 16:14 | PROGRESS NOTE ---
DATE: 10/26/2016 Mr. Capps is sleeping. He slept most of the morning but he did not have any episodes of agitation and did not try and get out of bed but he has been sleeping. It is now about 1 o'clock p.m. so I guess we will adjust the Klonopin down. Hoping to get him to a retirement possibly on Monday. His breathing is comfortable. He has made a limited progress with physical therapy but he is getting stronger and is eating a little bit more. EXAM: Today temp 98.5 degrees, pulse 95, respirations 17, blood pressure 140/98.HEENT: Pupils are equal round CVP less than 6 cm. Lungs: Clear in all lung fiore. Cardiovascular: Regular rate without murmur or S3. Weight 177 pounds. O2 saturation 99%. Urine output was almost 800 mL. LABS: Blood sugar 97, 118, 83. ASSESSMENT AND PLAN: 1. Altered mental status. Global encephalopathy. This appears to be a little better. He does have some underlying dementia. He has had a recent cortical CVA, parietal CVA. Continue with physical therapy. I will decrease his Klonopin. He felt lethargic today. 2. Dementia. Aware. 3. Status post recent right parietal cortex infarct status post right carotid endarterectomy. Encourage p.o. intake and see if he will be able to go to the retirement on Monday. cc: Darwin Ibarra MD
[2016-10-26] MEDS: ZYPREXA PO SCH (17:48)
[2016-10-26] MEDS: KLONOPIN PO SCH (17:48)
[2016-10-27] MEDS: LIPITOR PO SCH ×2 (00:09→20:53)
[2016-10-27] MEDS: DUONEB (A & A) INH SCH (03:24)
[2016-10-27] MEDS: PRINIVIL PO SCH (08:25)
[2016-10-27] MEDS: ASPIRIN PO SCH (08:25)
[2016-10-27] MEDS: LOVENOX SUBQ SCH (08:25)
[2016-10-27] MEDS: VITAMIN D PO SCH (08:25)
[2016-10-27] MEDS: NORVASC PO SCH (08:25)
--- NOTE | 2016-10-27 15:08 | CONSULTATION ---
DATE OF CONSULTATION: 10/27/2016 HISTORY: Mr. Capps is 80 years old, and he had some cognitive changes a few months ago. He is not able to provide accurate history. History is taken from his very attentive daughter at the bedside and from review of the available hospital records. Daughter reports he was completely independent with no history of stroke and no cognitive impairment whatsoever. About 2 months ago, he had some unsteady gait and fell backward a few times without altered consciousness, altered awareness, focal neurologic feature. 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 He had right carotid endarterectomy a few months ago and did well from a surgical standpoint. However, ever since then, according to the daughter, he has seemed inattentive, hard to keep his mind focused, hard to concentrate, hard to remember things. He had trouble participating with physical therapy after surgery. Daughter did not notice definite focal neurologic deficit. About a month ago, he was being helped up from a sitting position and his legs seemed to buckle. He did not fall. There was not clear focal weakness in one leg more than the other. He may have had some other similar episodes. Still, nothing definitely focal. He was admitted to the hospital about 3 weeks ago after an episode at home. He was found in the bathroom having pulled his diaper into pieces and put it into the sink, and he had splashed water everywhere. According to the daughter and on review of the hospital records for this admission, he had a period of respiratory depression requiring urgent management. Daughter believes he has not seemed completely recovered to baseline since that episode. He has had makayla delirium with restlessness and agitated confusion. He has been somnolent at times. He started olanzapine 10 mg daily 5 days ago. Ziprasidone 10 mg p.r.n. was started a few weeks ago, and he has averaged almost 1 dose daily. He started clonazepam 1 mg daily 5 days ago and that was reduced to 0.5 mg yesterday. Daughter says there is no history of serious head injury, previous stroke, definite seizure, or other neurologic event. There is no history of ethanol use or illicit drug use. His urine drug screen was all negative on this admission. Other lab included BUN initially 46; down to 17 now. Initial creatinine was 1.5 ; down to 0.7 now. There were some other relatively minor metabolic findings but nothing else that generally would be associated with seizure or encephalopathy. He has been afebrile throughout this admission. His systolic blood pressures have ranged from mostly 130s to 150s initially, 110s to 150s in the last day or so. EEG, 10/11/2016, showed generalized slowing. Brain MRI without contrast 10/11/2016 showed evidence of possible acute right parietal infarction, mostly subcortical. On my view, I believe there are some ischemic changes in the same territory notable on the admission noncontrast CT 10/07/2016. CT angiogram of the neck is reported to show 75%-80% right internal carotid stenosis proximally and a second area of stenosis distal to that. The left internal carotid appears occluded. Prior to admission, 08/02/2016, carotid ultrasound showed similar findings. PHYSICAL EXAMINATION: On exam now, he seemed to be sleeping peacefully with very minimal stimulation, he was awake and alert but not able to maintain attention. He followed some simple commands inconsistently including holding up fingers, counting fingers, protruding his tongue. He moves each limb purposefully. Again, his attention was limited, but I do not see definite focal motor deficit on bedside testing. Tone is equal in the limbs. Plantar response is extensor bilaterally. Left lower face is drooped compared to the right. Tongue is midline. He was able to count fingers in the left and right visual fiore but was inconsistent. Extraocular movement is full with head turning laterally. He has limited upgaze typical for age. Reflexes are absent at the ankles. I did not test his gait (daughter gives good description of likely apractic gait noted in recent weeks). IMPRESSION: 1. 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 In retrospect, I think there were some changes noted on CT on admission and this may be an old lesion. I am not sure about brain imaging done prior to endarterectomy and it would be interesting to check on that. At this point, I am not sure the subcortical nondominant right parietal infarction is playing a major role with his clinical situation. This could produce some inattention and neglect on the left but probably would not cause major motor deficit. 2. Report that he has been declining mentally over the last few months. There is clear evidence of cognitive impairment. He has trouble maintaining attention. Family gives good description of apractic gait. All of this is consistent with a diffuse global [employer] decline. This may be related to diffuse ischemic change but the MRI does not show that. Family reports he did not have any cognitive impairment prior to his endarterectomy. I think it would be reasonable to consider cholinesterase inhibitor trial, but benefit from that, if any, will typically not be rapid. 3. He has had some problems with behavior here including agitated, confusion, and makayla delirium. He has been temporarily improved with clonazepam and with neuroleptics medicines including olanzapine and ziprasidone. I discussed frankly with daughter the FDA Black Box warning regarding use of neuroleptic medicines in this setting. She understands and accepts that risk. We discussed potential habituation with clonazepam. I agree with plans to continue tapering that if possible. It looks like he has the olanzapine daily and the ziprasidone as needed averaging a dose most days, so we might increase olanzapine dose and hope to see him require fewer p.r.n. ziprasidone doses. 4. He had mild uremia on admission and that has been corrected. That could have contributed to metabolic encephalopathy earlier, but I believe that is resolved. I do not see anything on the recent lab work that would likely explain encephalopathy. 5. History does not sound like a makayla seizure, but I think EEG would be reasonable to make sure there is not evidence of subclinical seizure. I do not think we need further imaging at this point. Thanks for asking me to see Mr. Capps. cc: MD EDUAR Mahan III
--- NOTE | 2016-10-27 16:08 | PROGRESS NOTE ---
DATE: 10/27/2016 SUBJECTIVE: When I evaluated Mr. Capps today he was sitting up on the bed, not in distress. He was using restraints. His daughter was at the bedside. He was able to say his name and when the daughter asked to say her name he was able to say that but he was not consistent. He is following commands on and off. He looks a little bit somnolent/drowsy today. I had a large conversation with the daughter and she told me that this patient was completely independent a few months ago. He was able to walk, drive and with no mental problems. Actually he was taking care of his . He had before a right carotid endarterectomy and he has a complete occlusion on his left carotid artery. As per the daughter after that surgery he has not been the same. Apparently he has been more confused and having problems to remember or concentrate. He had also brain MRI done here on 10/11/2016 that showed a subacute infarction in the right parietal cortex. Also this patient had a code arrest during this hospitalization. I am not quite sure how long it did last. OBJECTIVE: Vital Signs: Temperature 97.8 degrees, pulse 85, respiratory rate 18, blood pressure 159/77, oxygen saturation 95% on room air. HEENT: Head normocephalic. No trauma. PERRLA. Neck: Supple. No JVD. No masses. Central trachea. It looks like there is some deviation to the left of his mouth. Chest: Clear to auscultation. No wheezing. No rales. Abdomen: Soft, nontender, nondistended. No hepatosplenomegaly. Cardiovascular: RRR. Extremities: No edema. No clubbing. Neurological: The patient is sleepy but arousable. Oriented x1. As per the daughter apparently he knows that he is in the hospital. He does not know which 1 though. He is not oriented in time. He is answering some of my questions but not consistently. LABORATORY: Glucose 104. ASSESSMENT AND PLAN: 1. Altered mental status, this is multifactorial. This patient has a history of decreased blood flow secondary to carotid stenosis and complete occlusion of 1 of them, status post recent stroke, carotid endarterectomy, code arrest, and probably medications. 2. Right parietal cortex infarct. Neurology Department is on board. They will ask for an EEG to rule out any subclinical seizures. 3. Transient episode of cardiac arrest on the floor. Aware. Continue to monitor with telemetry. 4. History of right endarterectomy with total occluded left carotid artery. Will monitor. No plan for surgery on the left side. 5. Left lower lobe pneumonia. Resolved. He is not on antibiotics at this moment. 6. Hypertension. Stable. Continue with the same management. 7. Vitamin D deficiency. Aware. Continue with the same treatment. 8. Deep vein thrombosis prophylaxis with Lovenox. cc: Rigo Grover MD
[2016-10-27] MEDS: KLONOPIN PO SCH (20:53)
[2016-10-27] MEDS: ZYPREXA PO SCH (20:53)
[2016-10-28 07:53] LABS: MANUAL DIFF NEEDED? NO
[2016-10-28 08:03] LABS: BASO% 0.4 % (0.0-0.8); EOS# 0.16 X1000 (0.0-0.7); EOS% 1.9 % (0.0-10.0); HEMATOCRIT 33.7 % (42.0-52.0); HEMOGLOBIN 10.9 g/dL (14.0-18.0); IMM GRAN# 0.02 X1000 (0.0-0.04); IMM GRAN% 0.2 % (0.0-0.5); LYMPH% 27.3 % (20.5-51.1); MCH 29.5 PG (27-31); MCHC 32.3 g/dL (33-37); MCV 91.1 FL (81-99); MONO# 0.72 X1000 (0.11-0.59); MONO% 8.6 % (1.7-9.3); MPV 9.6 FL (7.4-10.4); NEUT% 61.6 % (42.2-75.2); PLT 328 X1000 (130-400)
[2016-10-28 08:14] LABS: AGAP 9; BUN 11 mg/dL (8-22); CALCIUM 8.9 mg/dL (8.8-10.2); CHLORIDE 105 mmol/L (98-107); COSMO 289; POTASSIUM 3.1 mmol/L (3.5-5.1); SODIUM 146 mmol/L (136-145); TCO2 32 mmol/L (25-35)
[2016-10-28] MEDS: LOVENOX SUBQ SCH (13:03)
[2016-10-28] MEDS: VITAMIN D PO SCH (13:03)
[2016-10-28] MEDS: PRINIVIL PO SCH (13:03)
[2016-10-28] MEDS: NORVASC PO SCH (13:03)
[2016-10-28] MEDS: ASPIRIN PO SCH (13:03)
--- NOTE | 2016-10-28 13:34 | PROGRESS NOTE ---
DATE: 10/28/2016 Mr. Capps has been groggy through the morning after getting his night-time medicines a little bit later than usual, according to daughter. He is beginning to wake up now and does not seem to be any worse than yesterday. His EEG showed generalized slowing but no epileptiform discharge and no definite focal right hemisphere slowing to correlate with the imaging evidence of subcortical right hemisphere infarction. I do not have any new suggestion today from a neurologic standpoint. I would continue trying to reduce clonazepam, continue neuroleptic medicines with hope that he can manage with one or the other and not need to continue both olanzapine and ziprasidone. I would consider adding cholinesterase inhibitor electively, not urgent and I discussed again with daughter at the bedside that option. I hope he will continue stable and be ready for rehab when planned. Thanks for asking me to see Mr. Capps. cc: Guilherme Garrett III, MD
[2016-10-28] MEDS ORDERED: KLOR-CON PO ONE (14:30)
--- NOTE | 2016-10-28 14:56 | PROGRESS NOTE ---
DATE: 10/28/2016 SUBJECTIVE: When I evaluated this patient today, he was completely asleep. Apparently he received his Klonopin later than usual. Again today I had a conversation with the daughter. We are trying to adjust the medications so he is able to stay without restraints. I have consulted physical therapy to see if he is able to sit on the bed, but with his confusion probably they cannot do physical therapy. OBJECTIVE: Vital Signs: Temperature 98.4 degrees, pulse 66, respiratory rate 20, blood pressure 133/62, oxygen saturation 91 on room air. HEENT: Head normocephalic. No trauma. PERRLA. There is some facial droop on the left side of his mouth. Neck: Supple. No JVD. No masses. Central trachea. Chest: Clear to auscultation. No wheezing. No rales. Abdomen: Soft, nontender, nondistended. No hepatosplenomegaly. Cardiovascular: RRR. Extremities: No edema. No clubbing. No cyanosis. Neurological examination: The patient was asleep. Apparently he was given Klonopin the day before, but late. LABORATORY: WBC 8.4, hemoglobin 10.9, hematocrit 37.7, platelets 328. Sodium 146, potassium 3.1, chloride 105, bicarbonate 32, BUN 11, creatinine 0.7, glucose 80, calcium 8.9. ASSESSMENT AND PLAN: 1. Altered mental status; this is multifactorial. This patient has a history of carotid stenosis bilaterally, status post recent endarterectomy on one side and the other side is completely occluded. Also, this patient coded and he had a recent stroke. 2. Right parietal cortex infarct. Neurology Department is following this patient. They did an electroencephalogram to rule out any subclinical seizures. Today I consulted physical therapy, but since this patient is confused, probably this patient cannot do some kind of physical activity with them. 3. Transient episode of cardiac arrest on the floor. We will continue to monitor with telemetry. 4. History of right endarterectomy with total occluded left carotid artery. Will monitor. No plan for surgery on the left side. 5. Left lower lobe pneumonia, resolved. He is not on antibiotics at this moment. 6. Hypokalemia. I will replace the potassium today. 7. Hypertension, stable. Continue with the same management. 8. Vitamin D deficiency, aware. Continue with the same management. 9. Deep vein thrombosis prophylaxis with Lovenox. Neurology Department is following this patient. I have decreased the dose of Klonopin from 0.5 to 0.25 mg. Also, I removed the Geodon from his medications. We will continue to monitor this patient. cc: Rigo Grover MD
[2016-10-28] MEDS: ZYPREXA PO SCH ×2 (17:44→20:48)
[2016-10-28] MEDS: KLONOPIN PO SCH ×2 (17:44→20:47)
[2016-10-28] MEDS: LIPITOR PO SCH (20:47)
[2016-10-29] MEDS ORDERED: KLOR-CON PO ONE (07:51)
[2016-10-29 08:36] LABS: AGAP 13; BUN 13 mg/dL (8-22); CALCIUM 9.1 mg/dL (8.8-10.2); CHLORIDE 104 mmol/L (98-107); COSMO 290; POTASSIUM 3.4 mmol/L (3.5-5.1); SODIUM 146 mmol/L (136-145); TCO2 29 mmol/L (25-35)
[2016-10-29] MEDS: PRINIVIL PO SCH (09:58)
[2016-10-29] MEDS: LOVENOX SUBQ SCH (09:58)
[2016-10-29] MEDS: ASPIRIN PO SCH (09:58)
[2016-10-29] MEDS: NORVASC PO SCH (09:58)
[2016-10-29] MEDS: VITAMIN D PO SCH (09:58)
--- NOTE | 2016-10-29 14:47 | PROGRESS NOTE ---
DATE: 10/29/2016 SUBJECTIVE: This patient looks more alert and cooperative today. Family members at the bedside. I decreased the dose of Klonopin yesterday and, apparently, he did not sleep too much during the night. He was awake. We consulted physical therapy. This patient is still confused. He was able to say his name and he was able to recognize his daughter. OBJECTIVE: Vital Signs: Temperature 99.1 degrees, pulse 87, respiratory rate 18, blood pressure 126/81, oxygen saturation 100% on room air. HEENT: Head normocephalic. No trauma. PERRLA. Neck supple. No JVD. No masses. Central trachea. He has a some facial droop on the left side of his mouth. Chest clear to auscultation. No wheezing. No rales. Abdomen is soft, nontender, nondistended. No hepatosplenomegaly. Cardiovascular: RRR. Extremities: No edema. No clubbing. No cyanosis. Neurologic: The patient is alert. He is oriented x1. He is not oriented in place or time. He is following some of my commands, but he is not answering all my questions. LABORATORY: Sodium 146, potassium 3.4, chloride 104, bicarbonate 29. BUN 13, creatinine 0.8, glucose 79. Calcium 9.1. ASSESSMENT AND PLAN: 1. Altered mental status. This is multifactorial. This patient has a history of carotid stenosis 100% on the left side and history of a right carotid endarterectomy. Also history of recent stroke. 2. Right parietal cortex infarct. Neurology Department is following this patient. They did an electroencephalogram to rule out subclinical seizures. Physical therapy is on board. We will continue following their recommendations. 3. Transient episode of cardiac arrest on the floor. Continue to monitor with telemetry. 4. History of right endarterectomy with total occluded left carotid artery. Will monitor. No plan for surgery on the left side. 5. Left lower lobe pneumonia, resolved. He is not on antibiotics at this moment. 6. Hypokalemia. I will replace the potassium today. 7. Hypertension. Stable. Continue with the same management. 8. Vitamin D deficiency, aware. Continue with the same management. 9. Deep vein thrombosis prophylaxis with Lovenox. Neurology Department is following this patient. I have decreased the dose of Klonopin yesterday from 0.5-0.25. I also removed the Geodon from his medication. We will continue to monitor this patient. cc: Rigo Grover MD
[2016-10-29] MEDS: KLONOPIN PO SCH (17:51)
[2016-10-29] MEDS: ZYPREXA PO SCH (17:51)
[2016-10-29] MEDS: LIPITOR PO SCH (19:59)
[2016-10-30] MEDS ORDERED: KLONOPIN PO SCH (10:13)
[2016-10-30] MEDS: PRINIVIL PO SCH (10:22)
[2016-10-30] MEDS: ASPIRIN PO SCH (10:22)
[2016-10-30] MEDS: VITAMIN D PO SCH (10:22)
[2016-10-30] MEDS: LOVENOX SUBQ SCH (10:22)
[2016-10-30] MEDS: NORVASC PO SCH (10:22)
[2016-10-30 11:28] LABS: AGAP 9; BUN 13 mg/dL (8-22); CALCIUM 9.1 mg/dL (8.8-10.2); CHLORIDE 107 mmol/L (98-107); COSMO 291; POTASSIUM 3.6 mmol/L (3.5-5.1); SODIUM 147 mmol/L (136-145); TCO2 31 mmol/L (25-35)
--- NOTE | 2016-10-30 12:39 | PROGRESS NOTE ---
DATE: 10/30/2016 SUBJECTIVE: When I evaluated this patient he was sleeping. Apparently he slept the whole night as well. I will decrease the dose of clonidine to 0.125 to see how he does. Family members are at the bedside. All of their questions were answered. OBJECTIVE: Vital Signs: Temperature 98.6 degrees, pulse 62, respiratory rate 18, blood pressure 144/54, oxygen saturation 91% on room air. HEENT: Head normocephalic. No trauma. PERRLA. Left facial droop mostly noticed at the left side of his mouth. Neck: Supple. No JVD. No masses. Central trachea. Chest: Clear to auscultation. No wheezing. No rales. Abdomen: Soft, nontender, nondistended. No hepatosplenomegaly. Cardiovascular: RRR. Extremities: No edema. No clubbing. No cyanosis. Neurological: The patient is sleeping. I did not wake him up today. I will re-evaluate this patient in the afternoon. LABORATORY: Sodium 147, potassium 3.6, chloride 107, bicarbonate 31, BUN 13, creatinine 0.7, glucose 69, calcium 9.1. ASSESSMENT AND PLAN: 1. Altered mental status. This is multifactorial. He has a history of carotid stenosis 100% on the left side and history of right carotid endarterectomy, also history of recent stroke. 2. Right parietal cortex infarct. Neurology department is following this patient. They did an EEG to rule out subclinical seizures. Physical therapy is on board. We will continue following their recommendations. 3. Transient episode of cardiac arrest on the floor. Continue to monitor with telemetry. 4. History of right endarterectomy with total occluded left carotid artery. Will monitor. No plan for surgery at this moment on the left side. 5. Left lower lobe pneumonia, resolved. He is not on antibiotics at this moment. 6. Hypernatremia. This patient needs to drink more water. 7. Deep vein thrombosis prophylaxis with Lovenox. 8. Neurology department is following this patient. I have decreased the dose again of clonidine from 0.25 to 0.125 and also the Geodon has been removed since yesterday. We will continue to monitor this patient. cc: Rigo Grover MD
[2016-10-30] MEDS: ZYPREXA PO SCH (18:31)
[2016-10-30] MEDS: KLONOPIN PO SCH (18:31)
[2016-10-30] MEDS: LIPITOR PO SCH (20:22)
[2016-10-31 07:00] LABS: MANUAL DIFF NEEDED? NO
[2016-10-31 07:25] LABS: AGAP 8; BUN 15 mg/dL (8-22); CALCIUM 9.3 mg/dL (8.8-10.2); CHLORIDE 105 mmol/L (98-107); COSMO 286; POTASSIUM 3.6 mmol/L (3.5-5.1); SODIUM 144 mmol/L (136-145); TCO2 31 mmol/L (25-35)
[2016-10-31 08:47] LABS: BASO% 0.3 % (0.0-0.8); EOS% 2.1 % (0.0-10.0); HEMATOCRIT 36.8 % (42.0-52.0); HEMOGLOBIN 11.8 g/dL (14.0-18.0); IMM GRAN# 0.03 X1000 (0.0-0.04); IMM GRAN% 0.3 % (0.0-0.5); LYMPH# 2.62 X1000 (1.2-3.4); LYMPH% 27.6 % (20.5-51.1); MCH 29.3 PG (27-31); MCHC 32.1 g/dL (33-37); MCV 91.3 FL (81-99); MONO# 0.74 X1000 (0.11-0.59); MONO% 7.8 % (1.7-9.3); MPV 10.2 FL (7.4-10.4); NEUT% 61.9 % (42.2-75.2); PLT 358 X1000 (130-400); RBC 4.03 XMIL (4.7-6.1)
--- NOTE | 2016-10-31 08:47 | PROGRESS NOTE ---
DATE: 10/31/2016 Mr. Capps is much more alert than when I saw him a few days ago. He answered some simple questions. He carried on a little bit of conversation. He was not completely attentive to visual field testing but I believe that he may have at least a relative left hemianopia consistent with his right hemisphere infarction demonstrated on imaging. I could not find definite focal motor deficit or sensory deficit. He did not extinguish simultaneously applied tactile stimulation. I did not test his gait. Daughter at the bedside reports he has been restless but is much more calm and appropriate this morning. We discussed the possibility of a nondominant parietal lobe syndrome with neglect and possible left visual field deficit. He has a baseline cognitive impairment for at least the last few months and that will predispose him to more protracted encephalopathy with any toxic or metabolic change. I do not have any other suggestions today. I hope he will continue to improve and be ready for rehab. Thanks for asking me to see Mr. Capps. cc: Guilherme Garrett III, MD
[2016-10-31] MEDS: VITAMIN D PO SCH (09:25)
[2016-10-31] MEDS: LOVENOX SUBQ SCH (09:26)
[2016-10-31] MEDS: PRINIVIL PO SCH (09:26)
[2016-10-31] MEDS: ASPIRIN PO SCH (09:26)
[2016-10-31] MEDS: NORVASC PO SCH (09:26)
--- NOTE | 2016-10-31 13:50 | PROGRESS NOTE ---
DATE: 10/31/2016 SUBJECTIVE: This patient looks much better today, he is following commands. He was sitting on a chair. I talked to the nurse and we are going to try to get a wheelchair so he can be with the family around out of the bed. It looks like the dose of Klonopin that was reduced yesterday is working fine. We will continue to monitor. OBJECTIVE: Vital Signs: Temperature 98.7 degrees, pulse 92, respiratory rate 21, blood pressure 159/74, O2 saturation 97% on room air. HEENT: Head normocephalic. No trauma. Left facial drop mostly not these at the level of the left side of the mouth. Neck: Supple. No JVD. No masses. Central trachea. Chest: Clear to auscultation. No wheezing. No rales. Abdomen: Soft, nontender, nondistended. No hepatosplenomegaly. Cardiovascular: Regular rate and rhythm. Extremities: No edema. No clubbing. No cyanosis. Neurological: The patient is alert. He is following commands. He is working fine with physical therapy. He has generalized weakness. LABORATORY: WBC 9.4, hemoglobin 11.8, hematocrit 36.8, platelets 358,000. Sodium 144, potassium 3.6, chloride 105, bicarbonate 31, BUN 15, creatinine 0.8, glucose 75, calcium 9.3. ASSESSMENT AND PLAN: 1. Altered mental status. This is multifactorial. He looks a little bit better today. He is more alert and following commands, we will keep the dose of his medications. 2. Right parietal cortex infarct and neurology department is following this patient. They did an EEG to rule out subclinical seizures. Physical therapy is on board. We will continue following their recommendations. 3. Transient episode of cardiac arrest on the floor. Continue to monitor with telemetry. 4. History of right endarterectomy with total occluded left carotid artery. We will monitor. No plan for surgery at this moment on the left side. 5. Left lower lobe pneumonia resolved. 6. Hypernatremia resolved. 7. Deep vein thrombosis prophylaxis with Lovenox. cc: Rigo Grover MD
[2016-10-31] MEDS: KLONOPIN PO SCH (18:03)
[2016-10-31] MEDS: ZYPREXA PO SCH (18:03)
[2016-10-31] MEDS: LIPITOR PO SCH (20:31)
[2016-11-01] MEDS: NORVASC PO SCH (10:19)
[2016-11-01] MEDS: LOVENOX SUBQ SCH (10:20)
[2016-11-01] MEDS: VITAMIN D PO SCH (10:20)
[2016-11-01] MEDS: PRINIVIL PO SCH (10:20)
[2016-11-01] MEDS: ASPIRIN PO SCH (10:20)
[2016-11-01] MEDS ORDERED: DULCOLAX PR ONE (10:47)
[2016-11-01] MEDS: DUONEB (A & A) INH SCH ×5 (11:44→22:42)
[2016-11-01] MEDS: MIRALAX PO SCH (12:21)
--- NOTE | 2016-11-01 18:24 | PROGRESS NOTE ---
DATE: 11/01/2016 SUBJECTIVE: This patient looks better, he is following commands. I talked to him and he seems to understand, but he is confused on and off. I will continue with the same dose of his medications and I will follow the recommendation of Neurology department. OBJECTIVE: Vital Signs: Temperature 98.7, pulse 95, respiratory rate 18, blood pressure 124/67, oxygen saturation 96 on room air. HEENT: Head normocephalic. No trauma. PERRLA. Left facial droop mostly at the level of the left side of the mouth. Neck: Supple. No JVD. No masses. Central trachea. Chest: Clear to auscultation. No wheezing. No rales. Abdomen: Soft, nontender, nondistended. No hepatosplenomegaly. Cardiovascular: RRR. No murmurs. Extremities: No edema. No clubbing. No cyanosis. Neurological: The patient is alert. He is following commands. He is working fine with physical therapy. He has generalized weakness. He seems to understand what I am saying but as per the daughter, he is sometimes confused and he is still trying to get out of bed. LABORATORY: WBC 9.4, hemoglobin 11.8, hematocrit 36.8, platelets 358. Sodium 144, potassium 3.6, chloride 105, bicarbonate 31, BUN 15, creatinine 0.8, glucose 75, calcium 9.3. ASSESSMENT AND PLAN: 1. Altered mental status. This is multifactorial. He looks a little bit better today. He is more cooperative. I will keep the same dose of his medications. 2. Right parietal cortex infarct. Neurology department is following this patient. They did an EEG to rule out subclinical seizures. Physical therapy is on board. We will continue to follow their recommendations. 3. Transient episode of cardiac arrest on the floor. Continue to monitor with telemetry. 4. History of right endarterectomy, also total occluded left carotid artery. Will monitor. No plan for surgery at this moment on the left side. 5. Left lower lobe pneumonia, resolved. 6. Hypernatremia, resolved. 7. Deep vein thrombosis prophylaxis with Lovenox. Overall, this patient looks better. He is following commands, but he is confused on and off, and he has been trying to get of bed frequently. For that, we can place this patient on restraints. Let's see how he does and let's see if we are able to remove the restraints in the near future. If we are able to do that, this patient can be transferred to a long-term facility or retirement. cc: Rigo Grover MD
[2016-11-01] MEDS: ZYPREXA PO SCH (18:55)
[2016-11-01] MEDS: KLONOPIN PO SCH (18:55)
[2016-11-01] MEDS: LIPITOR PO SCH (22:08)
[2016-11-02] MEDS: DUONEB (A & A) INH SCH ×6 (02:35→22:40)
[2016-11-02] MEDS: MIRALAX PO SCH (10:03)
[2016-11-02] MEDS: LOVENOX SUBQ SCH (10:03)
[2016-11-02] MEDS: PRINIVIL PO SCH (10:03)
[2016-11-02] MEDS: ASPIRIN PO SCH (10:03)
[2016-11-02] MEDS: NORVASC PO SCH (10:04)
[2016-11-02] MEDS: VITAMIN D PO SCH (10:04)
--- NOTE | 2016-11-02 16:02 | PROGRESS NOTE ---
DATE: 11/02/2016 SUBJECTIVE: This patient looks about the same. He is alert. He is following commands but apparently he is disoriented and trying to get out of bed on and off. I will stop the Klonopin and I already increased the dose of olanzapine. Will monitor. OBJECTIVE: Vital Signs: Temperature 98.1 degrees, pulse 89, respiratory rate 18, blood pressure 128/59, oxygen saturation 99 on room air. HEENT: Head normocephalic. No trauma. There is a left facial deviation mostly at the level of the left side of the mouth. Neck: Supple. No JVD. No masses. Central trachea. Chest: Clear to auscultation. No wheezing. No rales. Abdomen: Soft, nontender, nondistended. No hepatosplenomegaly. Extremities: No edema. No clubbing. No cyanosis. Neurological: The patient is alert and oriented x1. No focal neurological deficits but generalized weakness. LABORATORY: Glucose 80. ASSESSMENT AND PLAN: 1. Altered mental status. This is multifactorial. He looks about the same compared with yesterday. He is more cooperative. I will stop completely the Klonopin and I will increase the dose of olanzapine. 2. Right parietal cortex infarct. Neurology Department is following this patient. They did an EEG to rule out subclinical seizure. Physical therapy is on board. We will continue to follow the recommendation. 3. Transient episode of cardiac arrest on the floor. Continue to monitor with telemetry. 4. History of right endarterectomy and also occluded left carotid artery. Will monitor. No plan for surgery at this moment on the left side. 5. Left lower lobe pneumonia resolved. 6. Hypernatremia, resolved. 7. Deep vein thrombosis prophylaxis with Lovenox. Overall, this patient looks better. He is following commands. He has been confused on and off. He is still getting restraints. I increased the dose of olanzapine and I completely stopped the Klonopin. We will continue to monitor. cc: Rigo Grover MD
[2016-11-02] MEDS: ZYPREXA PO SCH (18:18)
[2016-11-02] MEDS: LIPITOR PO SCH (21:57)
[2016-11-03] MEDS: DUONEB (A & A) INH SCH ×6 (03:53→22:36)
[2016-11-03] MEDS: ASPIRIN PO SCH (11:30)
[2016-11-03] MEDS: VITAMIN D PO SCH (11:30)
[2016-11-03] MEDS: MIRALAX PO SCH (11:30)
[2016-11-03] MEDS: LOVENOX SUBQ SCH (11:30)
[2016-11-03] MEDS: NORVASC PO SCH (11:30)
[2016-11-03] MEDS: PRINIVIL PO SCH (11:30)
--- NOTE | 2016-11-03 15:58 | PROGRESS NOTE ---
DATE: 11/03/2016 SUBJECTIVE: This patient looks about the same. He is alert. He is following commands. He seems to understand but apparently he is on and off not following commands and trying to stand up without supervision. The dose of olanzapine was increased. We will monitor. OBJECTIVE: Vital Signs: Temperature 97.6 degrees, pulse 83, respiratory rate 16, blood pressure 109/59, oxygen saturation 100% on room air. HEENT: Head normocephalic. No trauma. PERRLA. Neck: Supple. No JVD. No masses. Central trachea. Chest: Clear to auscultation. No wheezing. No rales. Abdomen: Soft, nontender, nondistended. No hepatosplenomegaly. Extremities: No edema. No clubbing. No cyanosis. Neurological: The patient is alert and oriented x3. Mild facial droop to the left side. LABORATORY: Glucose 84. ASSESSMENT AND PLAN: 1. Altered mental status. This is multifactorial. He looks about the same compared with yesterday. He is alert and cooperative. The dose of Klonopin has already been stopped and the dose of olanzapine has been increased, we will monitor. 2. Right parietal cortex infarct. Neurology Department is following this patient. They did an EEG to rule out subclinical seizures. Physical Therapy is on board. We will continue to follow their recommendations. 3. Transient episode of cardiac arrest on the floor. Continue to monitor with telemetry. 4. History of right endarterectomy and also occluded left carotid artery. We will monitor. No plan for surgery at this moment on the left side. 5. Left lower lobe pneumonia resolved. 6. Hypernatremia resolved. 7. Deep vein thrombosis prophylaxis with Lovenox. cc: Rigo Grover MD [facility]
[2016-11-03] MEDS: ZYPREXA PO SCH (17:45)
[2016-11-03] MEDS: LIPITOR PO SCH (20:51)
[2016-11-04] MEDS: DUONEB (A & A) INH SCH ×6 (03:20→22:34)
[2016-11-04] MEDS: LOVENOX SUBQ SCH (08:24)
[2016-11-04] MEDS: VITAMIN D PO SCH (08:24)
[2016-11-04] MEDS: MIRALAX PO SCH (08:24)
[2016-11-04] MEDS: NORVASC PO SCH (08:24)
[2016-11-04] MEDS: ASPIRIN PO SCH (08:24)
[2016-11-04] MEDS: PRINIVIL PO SCH (08:24)
--- NOTE | 2016-11-04 16:02 | PROGRESS NOTE ---
DATE: 11/04/2016 SUBJECTIVE: When I evaluated this patient, the patient was sitting on a chair and sleeping, family members at the bedside. He has been 24 hours without any kind of restraints but the daughter told me that during the night he tried to get up 1 time or 2 and then he went back to sleep, but no agitation. OBJECTIVE: Vital Signs: Temperature 98.1 degrees, pulse 95, respiratory rate 16, blood pressure 116/64, oxygen saturation 100% on room. HEENT: Head normocephalic. No trauma. PERRLA. Neck: Supple. No JVD. No masses. Central trachea. Chest: Clear to auscultation. No wheezing. No rales. Abdomen: Soft, nontender, nondistended. No hepatosplenomegaly. Extremities: No edema. Neurological Examination: The patient is sleepy but arousable. Oriented x3. Mild facial droop to the left side. LABORATORY: Not done today. ASSESSMENT AND PLAN: 1. Altered mental status: This is multifactorial. He had a stroke and also apparently a transient episode of cardiac arrest on the floor. I will continue with olanzapine. We will monitor. 2. Right parietal cortex infarct: Neurology Department is following this patient. They did an EEG to rule out subcortical seizure. Physical Therapy is on board. We will continue to follow their recommendations. 3. Transient episode of cardiac arrest on the floor. Continue with telemetry. 4. History of right endarterectomy and also occluded left carotid artery. We will continue to monitor. No plan for surgery at this moment on the left side. 5. Left lower lobe pneumonia resolved. 6. Hyponatremia resolved. 7. Deep vein thrombosis prophylaxis with Lovenox. cc: Rigo Grover MD
[2016-11-04] MEDS: ZYPREXA PO SCH (17:49)
[2016-11-04] MEDS: LIPITOR PO SCH (21:07)
[2016-11-05] MEDS: DUONEB (A & A) INH SCH ×6 (03:47→23:20)
[2016-11-05] MEDS: LOVENOX SUBQ SCH (09:06)
[2016-11-05] MEDS: MIRALAX PO SCH (09:06)
[2016-11-05] MEDS: ASPIRIN PO SCH (09:06)
[2016-11-05] MEDS: NORVASC PO SCH (09:07)
[2016-11-05] MEDS: PRINIVIL PO SCH (09:07)
[2016-11-05] MEDS: VITAMIN D PO SCH (09:07)
--- NOTE | 2016-11-05 12:49 | PROGRESS NOTE ---
DATE: 11/05/2016 SUBJECTIVE: When I evaluated this patient he was sitting on a chair, he was about to start doing physical therapy. He is following commands and he is answering all my questions. He is alert and oriented x3. He has been without restraints for the past 48 hours. We will continue with the same management for now. Hopefully next Monday if we are still about the same, we are going to be able to discharge this patient. OBJECTIVE: Vital Signs: Temperature 98.7 degrees, pulse 96, respiratory rate 20, blood pressure 144/64, oxygen saturation 98 on room air. HEENT: Head normocephalic. No trauma. PERRLA. Neck: Supple. No JVD. No masses. Central trachea. He has a left facial droop, mostly at the level of the mouth. Chest: Clear to auscultation. No wheezing. No rales. Cardiovascular: RRR. No murmurs. Abdomen: Soft, nontender, nondistended. No hepatosplenomegaly. Extremities: No edema. No clubbing. No cyanosis. Neurological: The patient is alert and oriented x3. He has mild facial droop on the left side. LABORATORY: Not done today. ASSESSMENT AND PLAN: 1. Altered mental status. I think this is getting better. This is multifactorial. He has had a stroke, and also apparently a transient episode of cardiac arrest on the floor. I will continue with olanzapine. It looks like this treatment is working. 2. Right parietal cortex infarct. Neurology department is following this patient. They did an EEG to rule out subclinical seizure. Physical therapy is on board. We will continue to follow their recommendations. 3. Transient episode of cardiac arrest on the floor. Continue with telemetry. 4. History of right endarterectomy and also occluded left carotic artery. We will continue to monitor. No plan for surgery at this moment on the left side. 5. Left lower lobe pneumonia resolved. 6. Hyponatremia resolved. 7. Deep vein thrombosis prophylaxis with Lovenox. cc: Rigo Grover MD
[2016-11-05] MEDS: ZYPREXA PO SCH (18:24)
[2016-11-05] MEDS: LIPITOR PO SCH (21:31)
[2016-11-06] MEDS: DUONEB (A & A) INH SCH ×6 (03:25→23:30)
[2016-11-06] MEDS: VITAMIN D PO SCH (08:30)
[2016-11-06] MEDS: ASPIRIN PO SCH (08:30)
[2016-11-06] MEDS: NORVASC PO SCH (08:30)
[2016-11-06] MEDS: LOVENOX SUBQ SCH ×2 (08:30→08:39)
[2016-11-06] MEDS: MIRALAX PO SCH (08:30)
[2016-11-06] MEDS: PRINIVIL PO SCH (08:31)
--- NOTE | 2016-11-06 13:34 | PROGRESS NOTE ---
DATE: 11/06/2016 SUBJECTIVE: When I evaluated this patient he was sitting on the bed eating, by himself. He was answering my questions and following commands. He is alert and oriented x2. He has been without restraints for the past 22 hours and the family is helping us with this patient during the day and night. OBJECTIVE: Vital Signs: Temperature 98.6 degrees, pulse 80, respiratory rate 16, blood pressure 149/70, oxygen saturation 100% on room air. HEENT: Head normocephalic. No trauma. PERRLA. Neck: Supple. No JVD. No masses. Central trachea. He has a left facial droop, mostly at the level of the mouth. Chest: Clear to auscultation. No wheezing. No rales. Cardiovascular: RRR. No murmurs. Abdomen: Soft, nontender, nondistended. No hepatosplenomegaly. Extremities: No edema. No clubbing. No cyanosis. Neurological: The patient is alert and oriented x2. He is not oriented in time. He has a mild facial droop on the left side. Also generalized weakness but more on the left side. LABORATORY: No lab work done today. ASSESSMENT AND PLAN: 1. Altered mental status. I think this is getting better. This is multifactorial. He had a stroke and apparently a transient episode of cardiac arrest on the floor. Also this patient has a history of right endarterectomy and also occluded 100% of the left carotic artery. Will continue for now with olanzapine. It looks like the treatment is working. We will monitor. 2. Right body at the cortex infarct. Neurology department is following this patient. They did an EEG to rule out subclinical seizures. Physical therapy is on board. We will continue to follow their recommendations. 3. Transient episode of cardiac arrest on the floor. Continue with telemetry. 4. History of right endarterectomy and also occluded left carotic artery. Will continue to monitor. No plan for surgery at this moment on the left side. 5. Left lower lobe pneumonia. Resolved. 6. Hyponatremia. Resolved. 7. Deep vein thrombosis prophylaxis with Lovenox. 8. Overall, this patient looks better, he is more alert. He is following commands. As per the family, sometimes he wants to get up, get out of bed but they did not say that this patient was confused. We have been talking about the possibility of hospice evaluation. Case management and mental health social worker are on board. cc: Rigo Grover MD
[2016-11-06] MEDS: ZYPREXA PO SCH (17:46)
[2016-11-06] MEDS ORDERED: MELATONIN PO SCH (21:00)
[2016-11-06] MEDS: LIPITOR PO SCH (22:18)
[2016-11-07] MEDS: DUONEB (A & A) INH SCH ×4 (03:18→15:56)
[2016-11-07] MEDS: ASPIRIN PO SCH (09:20)
[2016-11-07] MEDS: VITAMIN D PO SCH (09:20)
[2016-11-07] MEDS: MIRALAX PO SCH (09:20)
[2016-11-07] MEDS: LOVENOX SUBQ SCH (09:20)
[2016-11-07] MEDS: PRINIVIL PO SCH (09:20)
[2016-11-07] MEDS: NORVASC PO SCH (09:20)
[2016-11-07 11:55] VITALS: BP 132/67
--- NOTE | 2016-11-07 14:24 | DISCHARGE SUMMARY ---
ADMISSION DATE: 10/08/2016 DISCHARGE DATE: 11/07/2016 ADMISSION DIAGNOSES: 1. Acute kidney injury. 2. Hypertension. 3. Hyperlipidemia. 4. Carotid artery stenosis status post right carotid end arterectomy on August [address] Membreno with continued left carotid stenosis at 100% 5. Shaking spell. DISCHARGE DIAGNOSES: 1. Toxic metabolic global encephalopathy. 2. Acute delirium 3. Possible seizure on 10/09/2016. 4. Left lower lobe pneumonia o 5. Cardiac arrest 6. Vitamin D deficiency. 7. Severe protein calorie malnutrition 8. Right parietal cortex infarct 9. Uncontrolled hypertension 10. Hypokalemia 11. Hypernatremia 12. Constipation. 13. Dementia CONSULTATIONS: 1. Dr. Membreno was consulted on 10/08 for carotid artery stenosis 100% on the left, no surgical candidate. 2. Pulmonary Dr. Blankenship was consulted on 10/08 to follow along after respiratory arrest episode. 3. Dr. Garrett was consulted on 10/27 for continued encephalopathy, possible seizure and right parietal cortex CVA. PROCEDURES OR SURGERIES: None. HOSPITAL COURSE: Mr. Xiang Capps is an 81-year-old, male with a medical history of carotid artery stenosis 100% on left with 80% on right via carotid ultrasound from 08/02/2016. 08/22/2016 right carotid endarterectomy by Dr. Membreno was performed. He also has a history of hypertension, hyperlipidemia, coronary artery disease, and peripheral arterial disease. According to the family he had normal activities of daily living, he was still driving, walking etc prior to his right CEA. Post surgery however he has been having difficulties with activities of daily but no changes in his mentation per family. He presented for a shaking spell that was unwitnessed at home. When he was assessed in the ER he was oriented to person, place and situation but disoriented to year and according to the family that was normal for him. To evaluate his jerking and shaking episode a head CT was obtained which showed no acute findings apparently, there was no loss of consciousness, no incontinence, continued to talk throughout episode that lasted 30 minutes. Other findings revealed he had mild acute kidney injury with a creatinine of 1.5 and a baseline of 0.9. He was admitted to the medical floor and Dr. Membreno was consulted to follow up post carotid endarterectomy. On day 1 after admission it was reported that he was significantly confused wandering the halls. He was given Haldol. Apparently he was also given Geodon then he went into an unresponsive respiratory failure and thought to have had cardiac arrest although he was not on the monitor, he did received chest compressions, bag mask ventilation, as he was connected to the monitor it was found that he did have a heart rhythm and a pulse returned and he was breathing. He was sent to the ICU, a repeat head CT showed no acute findings again. Pulmonary was consulted. He continued on nasal cannula in the ICU but continued to be very somnolent. He was also started on a heparin drip for risk of a CVA. Workup to rule out CVA versus acute delirium, metabolic encephalopathy versus seizure at that time. Chest x-ray was negative. He had an EKG that showed sinus rhythm with a first-degree heart block with a rate of 84. Dr. Blankenship had ordered a chest CTA which showed left lower lobe infiltrate and no pulmonary emboli. He was started on meropenem 500 mg every 8 hours. It was also thought given possible seizure and admission diagnosis symptoms of shaking he was started on Keppra. Throughout his ICU stay his acute delirium was improving daily. On 10/11/2016 an MRI of the brain without contrast revealed that he did have a subacute infarct in the right parietal cortex. He was started on aspirin, statin, passed a swallow evaluation and physical therapy followed along. EEG on 10/11/2016 also revealed mild to moderate encephalopathy but no seizures. At that time the Keppra and Ativan was discontinued due to the patient still continuing to be drowsy. He did receive a PICC line and Clinimix was temporarily started IV for nutrition. On 10/12 he was more alert and transferred to the floor. He was found to have uncontrolled hypertension with a systolic blood pressure 170-190s and was started on low- dose PETRA inhibitor. Kidney function had returned to normal at that time. On 10/14 chest x-ray showed improved pneumonia and he was changed from IV vancomycin and meropenem to p.o. Augmentin for 10 day course but only received 8 days worth. While on the floor on 10/18/2016 he continued show signs of poor sleep with sundowning at night despite melatonin and Zyprexa so p.r.n. Geodon was added. By 10/21/2016 delirium continued and Klonopin was added. 10/27/2016 Dr. Garrett had been consulted and his recommendations was to taper Klonopin and increase Zyprexa to try and decrease p.r.n. use of Geodon. He also felt it had been a seizure earlier after admit and a repeat EEG only showed encephalopathy. By 10/29 Geodon had been stopped and Klonopin was decreased, by 11/02 Klonopin had been stopped and Zyprexa had been increased. Leaving him only on Zyprexa and Melatonin. Patient throughout stay during the hospital had been on and off restraints during his stay, he has slowly been improving on a daily basis, continues to work with physical therapy. He will now follow some simple commands but continues to attempt getting out of bed primarily at night and family stays at the bedside with him. Overall he is more alert, he has been without restraints for 4 days now. Much improved on low antipsychotic medication requirements, no antibiotics. Vitals have been stable and labs are stable. He has been deemed appropriate and he now has a bed with [facility]. DISCHARGE VITAL SIGNS: Temperature 98.4 degrees, heart rate 105 sinus tach, respiratory rate 18, blood pressure 132/67 and 96% on room air. DISCHARGE MEDICATIONS: Norvasc 5 mg p.o. daily, aspirin enteric-coated 325 mg p.o. daily, Lipitor 40 mg p.o. nightly, vitamin D3 2000 units p.o. daily, lisinopril 10 mg p.o. daily, melatonin 3 mg p.o. nightly, MiraLAX 17 g p.o. daily. DISCHARGE DIET: He had passed a swallow evaluation, he will continue with the mechanical soft diet along with Ensure Enlive with meals. LAB DATA: The last CBC on 10/31/2016 white blood cells 9000, hemoglobin 11, hematocrit 36, platelet count 358,000. Last BNP also on 10/31/2016 sodium 144, potassium 3.6 , BUN 15, creatinine 0.8, glucose 105 on 11/06/2016, calcium 9.3, bilirubin 0.41, AST 16, ALT 8, vitamin D 6, folate 10, TSH 1.95, free T4 is 1.22. IMAGING: Last chest x-ray on 10/14/2016 poor inspiration and pulmonary edema or pneumonia of the left lower lobe. Brain MRI 10/11/2016 subacute infarct in the right parietal cortex. Pulmonary arteriogram on 10/09/2016 no pulmonary emboli, evidence of a prior granulomatous infection, small infiltrates and atelectasis of the left lower lobe. Head CT on 10/08 and on no acute findings. Chest x-ray on admit which was 10/07/2016 showed no acute findings. He had EEG on 10/11 and on 10/28 both showed encephalopathy and no seizures. DISCHARGE ACTIVITY: Will be going to rehab. Activity with physical therapy. DISPOSITION: [facility]. DISCHARGE INSTRUCTIONS: Return for medical assistance if symptoms return. Please follow up with Erendira Guzman, your primary care provider, Dr. Garrett and Dr. Krzysztof Capps. Dictated by BRITTANY Menchaca for Roya Paredes MD cc: MD Roya Childs MD [facility]
--- NOTE | 2016-11-07 16:39 | PROGRESS NOTE ---
DATE: 11/07/2016 cc: Roya Paredes MD [facility]
--- NOTE | 2016-11-21 14:33 | EEG REPORT ---
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 FINDINGS: This record is composed of mostly slower activities, 4-6 hertz theta rhythm symmetrically across the hemispheres. There is poorly sustained 7-8 Hz posterior rhythm bilaterally with uncertain reactivity to eye opening. There is occasional slowing into the delta range frontally. Drowsing occurred briefly. Stage 2 sleep was not recorded. Photic stimulation did not significantly alter the record. No definite epileptiform discharge was identified. INTERPRETATION: Abnormal EEG because of generalized slowing. CORRELATION: This is indicative of a diffuse encephalopathy and is nonspecific. Subcortical infarction may not alter the EEG and that appears to be the case here. The absence of epileptiform discharges does not exclude a clinical diagnosis of seizures, but there is nothing on this record to suggest subclinical seizures as the reason for his poor attention. cc: Guilherme Garrett III, MD
== END 2016-11-07 16:30 ==
LOC: ED 19:18 → SUATTDRO 10-08 00:59 → 4N 10-08 00:59 → ICU 10-08 10:35 → 3N 10-12 10:59
PROVIDERS: ATTEND Internal Medicine

== ENCOUNTER 2016-11-10 15:58 | Inpatient (IN) ==
[2016-11-10] MEDS ORDERED: NS 1,000 ML IV ONE ×2 (16:29→20:00)
[2016-11-10] MEDS ORDERED: DULCOLAX PO ONE (16:29)
[2016-11-10 16:52] LABS: BASO% 0.2 % (0.0-0.8); EOS# 0.05 X1000 (0.0-0.7); EOS% 0.3 % (0.0-10.0); HEMATOCRIT 42.5 % (42.0-52.0); HEMOGLOBIN 13.8 g/dL (14.0-18.0); IMM GRAN# 0.03 X1000 (0.0-0.04); IMM GRAN% 0.2 % (0.0-0.5); LYMPH# 3.52 X1000 (1.2-3.4); LYMPH% 22.5 % (20.5-51.1); MANUAL DIFF NEEDED? NO; MCHC 32.5 g/dL (33-37); MCV 89.3 FL (81-99); MONO# 1.43 X1000 (0.11-0.59); MONO% 9.2 % (1.7-9.3); MPV 10.8 FL (7.4-10.4); NEUT% 67.6 % (42.2-75.2); PLT 319 X1000 (130-400); RBC 4.76 XMIL (4.7-6.1)
[2016-11-10 17:15] LABS: AGAP 16; ALKALINE PHOSPHATASE 56 U/L (32-122); AMYLASE 76 U/L (20-200); BUN 29 mg/dL (8-22); CALCIUM 9.8 mg/dL (8.8-10.2); CHLORIDE 100 mmol/L (98-107); COSMO 285; GOT 23 U/L (10-34); GPT 16 U/L (10-44); LIPASE 20 U/L (13-60); MAGNESIUM 2.1 mg/dL (1.5-2.7); POTASSIUM 3.2 mmol/L (3.5-5.1); SODIUM 140 mmol/L (136-145); TCO2 24 mmol/L (25-35); TOTAL PROTEIN 7.9 g/dL (6.3-8.3)
[2016-11-10] MEDS ORDERED: DULCOLAX PR ONE ×2 (17:17→17:22)
--- NOTE | 2016-11-10 17:41 | Diag Imaging Result Doc PS360 ---
EXAM: FLAT/UPRIGHT ABD/1 VIEW CHEST HISTORY: Abd pain TECHNIQUE: AP and lateral with obliques, four views COMPARISON: 10/14/2016 FINDINGS: Poor inspiratory effort. The appearance of the chest is similar to that of the prior exam. There is a large amount of air scattered throughout the bowel loops. No organomegaly. There are multiple pelvic surgical clips. IMPRESSION: Air distended bowel which could represent a distal obstruction, volvulus, or even megacolon. Electronically signed by Zeb Alatorre 11/10/2016 5:39 PM
--- NOTE | 2016-11-10 17:45 | PROVIDER DOCUMENTATION ---
This chart was entered by Maurice Gallegos Scribe, acting as scribe for Vineet Lott MD. HPI-Abdominal Pain/GI Problem - General Source: family Unable to obtain history due to:: altered (due to sundowners) - History of Present Illness-ABD Nature of Presenting Problems: patient is a 81 yo m that presents to the ER with no BM x 1 week. patient was d/ c from hospital 3 days ago. long term has attempted to use miralax pt hasn't taken much do to filling full Abdominal Pain Onset Location: reports: generalized abdomen Quality of Pain: reports: cramping Severity in ED: reports: moderate Onset/Duration: reports: gradual, 1 week ago Timing: reports: still present, constant Activities at Onset: reports: other (recent hospital admission) Modifying Factors: improves with: nothing Associated Symptoms: reports: constipation. denies: diarrhea, fever/chills, genitourinary problems, nausea, vomiting Last BM: 1 week ago Similar Symptoms Previously?: No Recently seen or treated by another doctor?: Yes <Vineet Lott - Last Filed: 11/10/16 17:48> - General Source: family Unable to obtain history due to:: altered <Andrew Felder - Last Filed: 11/11/16 05:04> - General Chief Complaint: Abdominal Pain Stated Complaint: abd Time Seen by Provider: 11/10/16 16:06 Allergies/Adverse Reactions: Patient Allergies Allergy/AdvReac Type Severity Reaction Status Date / Time No Known Allergies Allergy Verified 11/10/16 16:07 Home Medications: Home Medication List Medication Instructions Recorded Confirmed Last Taken Type LISINOpril [Prinivil] 10 mg PO DAILY 08/26/16 11/10/16 08/31/16 08:00 History ATORVAstatin [Lipitor] 40 mg PO QHS tablet 11/07/16 11/10/16 Unknown Rx Amlodipine [Norvasc] 5 mg PO DAILY tablet 11/07/16 11/10/16 Unknown Rx Aspirin EC 325 mg PO DAILY #30 tablet 11/07/16 11/10/16 Unknown Rx Cholecalciferol (Vit D3) [Vitamin 2,000 unit PO DAILY tablet 11/07/16 11/10/16 Unknown Rx D3] Melatonin 3 mg PO QHS tablet 11/07/16 11/10/16 Unknown Rx Polyethylene Glycol 3350 [Miralax] 17 gm PO DAILY powder, packet 11/07/1611/10 Unknown Rx Acetaminophen [Tylenol] 500 mg PO TID PRN 11/10/16 11/10/16 Unknown History Citalopram [Celexa] 20 mg PO DAILY 11/10/16 11/10/16 Unknown History Magnesium Hydroxide [Milk of 30 ml PO QHS 11/10/16 11/10/16 Unknown History Magnesia] Quetiapine Fumarate [Seroquel] 25 mg PO BID 11/10/16 11/10/16 Unknown History Review of Systems - Adult - REVIEW OF SYSTEMS - ADULT ROS:: ROS per family Constitutional: denies: chills, fever Eyes: denies: decreased vision, blurred vision, double vision Ears, Nose, Mouth & Throat: denies: ear discharge, sinus problem, throat pain, throat swelling Cardiovascular: reports: no symptoms reported Respiratory: reports: no symptoms reported Gastrointestinal: reports: abdominal pain, constipation. denies: diarrhea, nausea, vomiting Genitourinary: reports: no symptoms reported Musculoskeletal: reports: no symptoms reported Integumentary: reports: no symptoms reported Neurological: reports: no symptoms reported Psychiatric: reports: no symptoms reported Endocrine: reports: no symptoms reported Hematologic/Lymphatic: reports: no symptoms reported Allergic/Immunologic: reports: no symptoms reported All Other Systems: Reviewed and Negative <Vineet Lott - Last Filed: 11/10/16 17:48> - REVIEW OF SYSTEMS - ADULT ROS:: unobtainable per condition Constitutional: denies: fever <Andrew Felder - Last Filed: 11/11/16 05:04> Past History - Adult - PAST MEDICAL HISTORY-ADULT Review of Records: reports: Old Records Reviewed, Nursing Assessment Review, Medications Reviewed Cardiovascular: reports: HTN, hyperlipidemia Genitourinary: reports: prostate cancer Neurological: reports: CVA - PRIOR SURGERIES/PROCEDURES Surgical/Procedure History: reports: other (prostectomy) - IMMUNIZATION STATUS Childhood Immunizations: See Nurse Assessment Flu Vaccine: See Nurse Assessment - FAMILY HISTORY Family History: reviewed, not pertinent - SOCIAL HISTORY Smoking: non-smoker Living Situation: family <Vineet Lott - Last Filed: 11/10/16 17:48> - PAST MEDICAL HISTORY-ADULT Review of Records: reports: Old Records Reviewed, Nursing Assessment Review, Medications Reviewed, Social history reviewed & non-contributory. <Andrew Felder - Last Filed: 11/11/16 05:04> Physical Exam-General - PHYSICAL EXAM-ADULT Exam Limited by: condition Initial Vital Signs Reviewed: Yes - CONSTITUTIONAL General Appearance: alert, mild distress - EYES Eyes: PERRL/EOMI, pink conjunctivae - HEAD, EARS, NOSE, MOUTH & THROAT HENMT: normocephalic/atraumatic, moist mucous membranes, normal ENT inspection - NECK Neck: full range of motion, normal inspection - RESPIRATORY Respiratory: lungs clear, normal breath sounds, no respiratory distress, no accessory muscle use - CARDIOVASCULAR Cardiovascular: regular rate, rhythm, no edema - GASTROINTESTINAL (ABDOMEN) Abdominal Exam: normal bowel sounds, no organomegaly, no pulsatile mass, distended, tenderness (generalized) - MUSCULOSKELETAL Extremity: no pedal edema, normal capillary refill - SKIN Integumentary: normal color, warm/dry - PSYCHIATRIC Psych/Mental Status: other (his normal baseline) <Vineet Lott - Last Filed: 11/10/16 17:48> - PHYSICAL EXAM-ADULT Initial Vital Signs Reviewed: Yes - CONSTITUTIONAL General Appearance: alert, mild distress <Andrew Felder - Last Filed: 11/11/16 05:04> Progress - PLAN OF CARE/RESULTS Progress/Plan/Lab Results: Vital Signs - 8 hr 11/10/16 16:02 Pulse Rate 98 H Respiratory Rate 18 Blood Pressure 123/067 O2 Sat by Pulse Oximetry 99 Result Diagrams: 11/10/16 16:38 11/10/16 16:38 - XRAY 1 XRAY Study: Chest, Abdomen Impression: Abnormal (Airdistended bowel which could represent a distal obstruction, volvulus, or even magacolon.) - CHANGE OF SHIFT REPORT (ED Provider) Report Given and Care Transferred to:: Dr. Felder Time of Transfer: 18:00 Items Pending: Labs, CT/MRI Results, Other (Dispo) <Vineet Lott - Last Filed: 11/10/16 17:48> - PLAN OF CARE/RESULTS Progress/Plan/Lab Results: Vital Signs - 8 hr 11/10/16 16:02 11/10/16 17:16 Pulse Rate 98 H 93 H Respiratory Rate 18 18 Blood Pressure 123/067 134/76 O2 Sat by Pulse Oximetry 99 96 Laboratory Results - last 24 hr 11/10/16 11/10/16 11/10/16 16:38 16:38 16:38 WBC RBC Hgb Hct MCV MCH MCHC RDW Std Deviation Plt Count MPV Immature Gran % (Auto) Neut % (Auto) Lymph % (Auto) [place] % (Auto) Eos % (Auto) Baso % (Auto) Immature Gran # (Auto) Neut # (Auto) Lymph # (Auto) [place] # (Auto) Eos # (Auto) Baso # (Auto) Sodium 140 Potassium 3.2 L Chloride 100 Carbon Dioxide 24 L Anion Gap 16 BUN 29 H Creatinine 0.9 Estimated GFR/1.73 m2 > 60 BUN/Creatinine Ratio 32 Glucose 94 Calculated Osmolality 285 Calcium 9.8 Magnesium 2.1 Total Bilirubin 0.70 AST 23 ALT 16 Alkaline Phosphatase 56 Troponin T 0.010 Heq-W-Ijxorajezjm Pept 102 Total Protein 7.9 Albumin 4.0 Globulin 4.0 Albumin/Globulin Ratio 1.0 Amylase 76 Lipase 20 11/10/16 16:38 WBC 15.61 H RBC 4.76 Hgb 13.8 L Hct 42.5 MCV 89.3 MCH 29.0 MCHC 32.5 L RDW Std Deviation 13.9 Plt Count 319 MPV 10.8 H Immature Gran % (Auto) 0.2 Neut % (Auto) 67.6 Lymph % (Auto) 22.5 [place] % (Auto) 9.2 Eos % (Auto) 0.3 Baso % (Auto) 0.2 Immature Gran # (Auto) 0.03 Neut # (Auto) 10.55 H Lymph # (Auto) 3.52 H [place] # (Auto) 1.43 H Eos # (Auto) 0.05 Baso # (Auto) 0.03 Sodium Potassium Chloride Carbon Dioxide Anion Gap BUN Creatinine Estimated GFR/1.73 m2 BUN/Creatinine Ratio Glucose Calculated Osmolality Calcium Magnesium Total Bilirubin AST ALT Alkaline Phosphatase Troponin T Rty-[id number] Pept Total Protein Albumin Globulin Albumin/Globulin Ratio Amylase Lipase Orders Category Date Time Status Saline Loc DIRECTED Care 11/10/16 16:29 Active NPO Diet 11/10/16 16:[address] ABD/PELVIS W/ IV CONT ONLY [CT] Stat Exams 11/10/16 17:28 Taken FLAT/UPRIGHT ABD/1 VIEW CHEST [RAD] Stat Exams 11/10/16 16:29 Completed AMYLASE [CHEM] Stat Lab 11/10/16 16:38 Completed CBC WITH ELECTRONIC DIFF [HEME] Stat Lab 11/10/16 16:38 Completed COMPREHENSIVE METABOLIC PANEL [CHEM] Stat Lab 11/10/16 16:38 Completed LIPASE [CHEM] Stat Lab 11/10/16 16:38 Completed MAGNESIUM [CHEM] Stat Lab 11/10/16 16:38 Completed PRO B-NATRIURETIC PEPTIDE Stat Lab 11/10/16 16:38 Completed TROPONIN T Stat Lab 11/10/16 16:[address] W/POSS RFLX CULT [URINALYSIS] Stat Lab 11/10/16 16:29 Uncollected 0.9% Sodium Chloride Inj [Ns] 1,000 ml Med 11/10/16 16:29 Discontinued IV 999 mls/hr Bisacodyl [Dulcolax] Med 11/10/16 17:17 Discontinued 10 mg DE NOW ONE Bisacodyl [Dulcolax] Med 11/10/16 17:22 Discontinued 10 mg DE NOW ONE Bisacodyl [Dulcolax] Med 11/10/16 16:29 Discontinued 20 mg PO NOW ONE Result Diagrams: 11/10/16 16:38 11/10/16 16:38 - CT/MRI 1 CT Study: Abdomen Impression: 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) <Andrew Felder - Last Filed: 11/11/16 05:04> Departure <Vineet Lott - Last Filed: 11/10/16 17:48> - Departure Date of Disposition Decision: 11/10/16 Time of Disposition Decision: 19:57 Certified Medical Emergency: Emergent - Critical Care Note This patient required my direct & personal management of CC.: No <Andrew Felder - Last Filed: 11/11/16 05:04> - Departure DIAGNOSIS: Dundee's syndrome Disposition: ADMITTED INPATIENT 09 Condition: Stable This chart was documented by the indicated scribe, (Maurice Gallegos, Luis Fernando) and accurately reflects the services I performed and decisions made by me, Vineet Lott MD, as attested by the provider's signature.
[2016-11-10] MEDS ORDERED: ZOFRAN IV PRN (20:00)
[2016-11-10] MEDS: MELATONIN PO ONE (21:58)
[2016-11-10] MEDS: SEROQUEL PO ONE (21:58)
[2016-11-10 22:01] LABS: BILIRUBIN URINE NEGATIVE (NEGATIVE); BLOOD URINE 3+ (NEGATIVE); GLUCOSE URINE NEGATIVE (NEGATIVE); LEUKOCYTES URINE 2+ (NEGATIVE); NITRITE URINE POSITIVE (NEGATIVE); PH URINE 6.5; PROTEIN URINE 1+(30 mg/dL) mg/dL (NEGATIVE); SP GRAVITY URINE 1.015; UROBILINOGEN URINE 1+(1 mg/dL)
[2016-11-10 22:02] LABS: CLARITY VERY CLOUDY (CLEAR); COLOR AMBER
[2016-11-10 22:08] LABS: URINE WBC <10 /HPF (<10)
[2016-11-10 22:10] LABS: URINE CULTURE PL NEEDED? YES; URINE EPITHELIAL CELLS <10 /HPF (<10); URINE RBC <10 /HPF (<10)
[2016-11-10 22:11] LABS: URINE SOURCE CLEAN CATCH
[2016-11-11] MEDS: SEROQUEL PO ONE (03:28)
[2016-11-11] MEDS: MELATONIN PO ONE (03:28)
[2016-11-11] MEDS: NS 1,000 ML IV SCH ×2 (08:09→21:51)
--- NOTE | 2016-11-11 08:12 | Diag Imaging Result Doc PS360 ---
EXAM: CT ABD/PELVIS W/ IV CONT ONLY HISTORY: Abd pain w/o BM X 1 week TECHNIQUE: Images were obtained from the lung bases to pubic symphysis following IV contrast. COMPARISON: 04/14/2014 FINDINGS: Preliminary interpretation was given by the on-call radiologist. The lung bases show linear atelectasis bilaterally and a larger area of consolidation with air bronchograms left lower lobe. There are calcified granulomata as well as calcified hilar and mediastinal lymph nodes there is colonic distention, cecum 8.8 cm, extending to the anus. No obstructing lesion is appreciated. Multiple complex cysts and solid masses are noted in the kidneys which are considered indeterminate but unchanged compared with the previous study 04/14/2014. No calcified gallstones are appreciated. No free fluid or free air is noted within the abdomen. There are surgical clips within the pelvis consistent with previous prostatectomy. Is no small bowel distention appreciated. Visualized solid visceral organs are otherwise unremarkable. There is moderate atherosclerotic disease. Marked lumbar spine spondylosis. IMPRESSION: 1.Bibasilar airspace disease left greater than right. 2.Significant colonic distention without obstructing lesion appreciated. Very distal obstruction is not excluded. Correlation with physical examination recommended. 3.Multiple indeterminate but stable renal nodules. Electronically signed by Chastity Walton 11/11/2016 8:10 AM
--- NOTE | 2016-11-11 11:09 | Diag Imaging Result Doc PS360 ---
EXAM: ABDOMEN FLAT/UPRIGHT HISTORY: ABD DISTENTION TECHNIQUE: Two view abdomen. COMPARISON: 11/10/2016 FINDINGS: There are surgical clips within the pelvis and contrast within the bladder from prior CT scan. Distended colonic loops are again appreciated but decreased in caliber when compared with yesterday's exam. No free air is demonstrated. IMPRESSION: Colonic distention improved from prior study. Electronically signed by Chastity Walton 11/11/2016 11:06 AM
[2016-11-11 13:31] LABS: HEMATOCRIT 37.5 % (42.0-52.0); HEMOGLOBIN 12.2 g/dL (14.0-18.0); MCH 29.2 PG (27-31); MCHC 32.5 g/dL (33-37); MCV 89.7 FL (81-99); MPV 10.3 FL (7.4-10.4); RBC 4.18 XMIL (4.7-6.1)
[2016-11-11 13:53] LABS: AGAP 14; BUN 23 mg/dL (8-22); CALCIUM 8.7 mg/dL (8.8-10.2); CHLORIDE 107 mmol/L (98-107); COSMO 291; POTASSIUM 3.1 mmol/L (3.5-5.1); SODIUM 145 mmol/L (136-145); TCO2 24 mmol/L (25-35)
--- NOTE | 2016-11-11 14:19 | HISTORY AND PHYSICAL ---
CHIEF COMPLAINT: Abdominal pain and distention. HISTORY OF PRESENT ILLNESS: This is an 81-year-old male with a prior history of hypertension who presented to the hospital from rehab for abdominal distention, abdominal pain and no bowel movement for at least 3 days maybe longer. The patient does have some dementia and therefore he is unable to give a history so history is taken from family members and the chartHis daughter says he has been complaining of abdominal pain for greater than 3 days. His appetite has decreased through this time. MiraLAX was given at rehab,he would not take the full dose as he would begin to feel full. No known nausea or vomiting. Abdominal x-ray revealed air distended bowel that could represent a distal obstruction, volvulus or even a megacolon. 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 3 Dulcolax suppositories were given in emergency room and reportedly had 2 very large bowel movements with some smaller bowel movements to follow. These all were formed. He has had 2 liquid bowel movements this morning. There is less abdominal distention. He denies any pain on palpation. Family members state they can tell quite a difference in his distention. PAST MEDICAL HISTORY: Hypertension, hyperlipidemia, prostate cancer, coronary artery disease and peripheral artery disease. PAST SURGICAL HISTORY: Prostatectomy and right carotid endarterectomy in August 2016. SOCIAL HISTORY: He currently resides at a rehab facility. He has no tobacco, alcohol or illicit drug use. ALLERGIES: No known drug allergies. HOME MEDICATIONS: A list will be obtained. REVIEW OF SYSTEMS: Unable to obtain from the patient at present. PHYSICAL EXAMINATION: GENERAL: This is an 81-year-old gentleman who is sitting in bed in no distress. VITAL SIGNS: Blood pressure is 166/60 with a heart rate of 80, respirations are 18, temperature is 98.9 degrees with a room air saturation of 98-99%. HEENT: Head is normocephalic, atraumatic. EOMs are intact. Sclerae anicteric. Mucous membranes are moist. NECK: Supple. Trachea midline. CARDIOVASCULAR: Regular rate and rhythm S1, S2 appreciated. PULMONARY: Breath sounds are clear. No increased work of breathing noted. ABDOMEN: Distended but is soft with bowel sounds in all 4 quadrants. He is nontender to palpation. MUSCULOSKELETAL: Good range of motion of joints. EXTREMITIES: No clubbing, cyanosis, or edema. Pulses are palpable x4. SKIN: Warm and dry. He does have a bandage to his right forearm where he reportedly had a skin tear on arrival to the emergency room. DIAGNOSTICS: WBC is 15.6 with a hemoglobin 13.8, hematocrit 42.5, platelets of 319,000. Sodium is 140, potassium 3.2, BUN 29, creatinine 0.9 with a glucose of 94. Urinalysis reveals nitrite positive urine with less than 10 microscopic red blood cells and white blood cells and 4+ bacteria. Urine culture is pending. ASSESSMENT AND PLAN: 1. Abdominal pain. 2. 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 3. Hypertension. 4. History of prostate cancer. 5. Coronary artery disease. 6. Hyperlipidemia. 7. Hypokalemia. He has been admitted to the med surgery floor. We will continue with gentle hydration as well as Zofran for nausea. We will consult Dr. Membreno and General Surgery. As he has had such large bowel movements and he has less distention will repeat abdominal x-ray and identify his home medications and continue as appropriate. Further treatments pending hospital course. Dictated by BRITTANY Rg for Ugo Tomas MD cc: BRITTANY Rg MD [facility] SYSTEM[facility]ry
[2016-11-11] MEDS ORDERED: EXELON 4.6MG/24HRS TD ONE (17:03)
[2016-11-11] MEDS ORDERED: SEROQUEL PO ONE (17:04)
[2016-11-11] MEDS: MELATONIN PO SCH (20:26)
[2016-11-11] MEDS: HALDOL IV PRN (20:26)
[2016-11-11] MEDS: BENADRYL IV PRN (20:26)
[2016-11-11] MEDS: SEROQUEL PO SCH (20:26)
[2016-11-11] MEDS ORDERED: SEROQUEL PO SCH (21:00)
[2016-11-11] MEDS ORDERED: D50W SYRINGE ONE (21:48)
[2016-11-12] MEDS: CALMOSEPTINE OINTMENT TOP SCH ×2 (03:21→10:14)
[2016-11-12 06:19] LABS: HEMATOCRIT 37.9 % (42.0-52.0); HEMOGLOBIN 12.2 g/dL (14.0-18.0); MCH 29.1 PG (27-31); MCHC 32.2 g/dL (33-37); MCV 90.5 FL (81-99); MPV 10.4 FL (7.4-10.4); RBC 4.19 XMIL (4.7-6.1)
[2016-11-12 06:35] LABS: AGAP 15; BUN 17 mg/dL (8-22); CALCIUM 8.8 mg/dL (8.8-10.2); CHLORIDE 108 mmol/L (98-107); COSMO 287; POTASSIUM 3.4 mmol/L (3.5-5.1); SODIUM 144 mmol/L (136-145); TCO2 22 mmol/L (25-35)
--- NOTE | 2016-11-12 07:47 | Diag Imaging Result Doc PS360 ---
EXAM: FLAT/UPRIGHT ABD/1 VIEW CHEST HISTORY: ABD DISTENTION TECHNIQUE: Flat and upright portable with AP chest COMMENT: There are numerous surgical clips in the pelvis which may be related to previous prostatectomy. There is gaseous dilatation of much of the colon particularly the sigmoid. This appearance is similar to that on 11/11/2016. There is somewhat less colonic gas present than on 11/10/2016. CHEST: The inspiration is suboptimal. There is no focal pulmonary opacity. Overall there is been no significant change since 11/10/2016. IMPRESSION: Apparent colonic ileus. Electronically signed by Rios Devi 11/12/2016 7:45 AM
[2016-11-12] MEDS ORDERED: EXELON 4.6MG/24HRS TD SCH (09:00)
[2016-11-12] MEDS ORDERED: ZOFRAN IV PRN (10:00)
[2016-11-12] MEDS ORDERED: CALMOSEPTINE OINTMENT TOP PRN (10:13)
[2016-11-12] MEDS: SEROQUEL PO SCH ×2 (10:14→20:30)
[2016-11-12] MEDS ORDERED: D50W SYRINGE ONE (10:48)
[2016-11-12] MEDS: EXELON 4.6MG/24HRS TD SCH (10:58)
[2016-11-12] MEDS: MIRALAX PO SCH (10:58)
[2016-11-12] MEDS: PRINIVIL PO SCH (10:58)
[2016-11-12] MEDS: NS 1,000 ML IV SCH (10:58)
[2016-11-12] MEDS: CELEXA PO SCH (10:58)
[2016-11-12] MEDS: ZOSYN 3.375 GM/NS 3.375 GM/50 ML IVPB IV SCH ×3 (10:58→21:38)
--- NOTE | 2016-11-12 12:08 | PROGRESS NOTE ---
DATE: 11/12/2016 SUBJECTIVE: Patient is feeling a little bit better. He is actually a little more awake and alert. He has told his daughter that he wants to eat. States he wants 3 cheeseburgers and a large Coke. OBJECTIVE: Temperature 98 degrees, pulse 70, respiratory rate 18, blood pressure 142/60, saturation 98% on room air.General: Patient is currently sleeping, but is usually more awake and alert. HEENT: Normocephalic, atraumatic. SAMAN. Neck: Supple. Cardiovascular: Regular rate. Chest: Clear. Abdomen: Soft. Positive bowel sounds. Nondistended. Appears nontender. ASSESSMENT: 1. Colonic distention consistent with Bautista syndrome. Appears to be improved. Will attempt clear liquids. We will discuss with Surgery. 2. History of prostate cancer. 3. Known coronary artery disease. 4. Hypertension. 5. Chronic dementia. PLAN: Discussed at great length with the daughter the current conditions and possibilities of requiring surgery. The daughter understands the perils of surgery, given Mr. Capps's recent dementia after previous surgeries. We will continue to follow. Further orders as needed. cc: Ugo Tomas MD
[2016-11-12] MEDS: BENADRYL IV PRN (20:30)
[2016-11-12] MEDS: MELATONIN PO SCH (20:30)
[2016-11-12] MEDS: HALDOL IV PRN (20:30)
[2016-11-12] MEDS: MILK OF MAGNESIA PO SCH (20:31)
[2016-11-13] MEDS: ZOSYN 3.375 GM/NS 3.375 GM/50 ML IVPB IV SCH ×4 (03:08→21:28)
[2016-11-13] MEDS: BENADRYL IV PRN (06:03)
[2016-11-13] MEDS: HALDOL IV PRN (06:03)
[2016-11-13] MEDS ORDERED: D5 NS 1,000 ML IV SCH (07:22)
[2016-11-13] MEDS: SEROQUEL PO SCH ×2 (09:09→20:32)
[2016-11-13] MEDS: VITAMIN D PO SCH (09:09)
[2016-11-13] MEDS: PRINIVIL PO SCH (09:09)
[2016-11-13] MEDS: CELEXA PO SCH (09:09)
[2016-11-13] MEDS: EXELON 4.6MG/24HRS TD SCH (09:10)
[2016-11-13] MEDS: MIRALAX PO SCH (09:10)
--- NOTE | 2016-11-13 10:21 | PROGRESS NOTE ---
DATE: 11/13/2016 SUBJECTIVE: The patient feels somewhat better. He is a little more awake and alert. He does follow some commands. He denies abdominal pain with palpation. PHYSICAL EXAMINATION: Extremities: No clubbing, cyanosis, or edema. Pulses are palpable x4. LABS: WBC is 12.6, with a hemoglobin of 12.2, hematocrit 37.9, and platelets of 235,000. Sodium is 144, potassium 3.4, BUN 17, creatinine 0.6, with blood glucose running in the 50s to 115. Microbiology: Urine culture revealed E. coli, ESBL negative. This is pansensitive. ASSESSMENT:: 1. Colonic distention consistent with [place] syndrome. This is improving. He has tolerated clear liquids. We are awaiting surgery to evaluate the patient. 2. Escherichia coli urinary tract infection that is sensitive to Zosyn. We will continue. 3. History of prostate cancer. 4. Known coronary artery disease. 5. Chronic dementia. 6. Hypokalemia. We will supplement potassium and follow labs. Dictated by BRITTANY gR for Ugo Tomas MD cc: BRITTANY Rg MD
--- NOTE | 2016-11-13 13:04 | Diag Imaging Result Doc PS360 ---
EXAM: KUB ABDOMEN HISTORY: ileus TECHNIQUE: KUB COMMENT: There are surgical clips throughout the pelvis. There is colonic gas and some small bowel gas. Compared to 11/12/2016 there is been no appreciable change. IMPRESSION: Ileus Electronically signed by Rios Devi 11/13/2016 1:01 PM
--- NOTE | 2016-11-13 17:44 | CONSULTATION ---
DATE OF CONSULTATION: 11/13/2016 CHIEF COMPLAINT: Resolving ileus. HISTORY: This is a 81-year-old gentleman who I know from a carotid endarterectomy 2 months ago. He has been hospitalized recently for a long amount of time at [facility]. He was discharged to rehab, has come back with abdominal distention. His daughter says that he has had trouble with chronic constipation and has bowel movements for a long time. At admission the CT scan showed just a dilated colon. No evidence of true obstruction or mechanical obstruction. PAST MEDICAL HISTORY: His other history includes hypertension, hyperlipidemia, history of prostate cancer, coronary disease, peripheral artery disease. PAST SURGICAL HISTORY: Includes prostatectomy as well as the right carotid endarterectomy. SOCIAL HISTORY: He is at [facility]. Denies alcohol, tobacco usage. Has an attentive family. HOME MEDICATIONS: Are listed. ALLERGIES: He has no known drug allergies. REVIEW OF SYSTEMS: As noted above. EXAMINATION: Vital signs: He is afebrile, heart rate 88, respiratory rate 18, blood pressure 146/77. General: He is quite communicative today, more so than in past visits that I have seen him on. He has equal strength in both arms and legs. Lungs: Bilateral breath sounds. Heart: Irregular rate and rhythm. He has a harsh systolic murmur. Abdomen: Soft and nontender. Bowel sounds are present. LABS: White count is 12,600 yesterday. ASSESSMENT: Colonic ileus consistent with [place] syndrome. His bowels are moving satisfactory now, he is tolerating liquids. I will advance his diet. He can return to rehab whenever he is tolerating solid food satisfactorily. Thanks for the opportunity to see him. cc: Simon Membreno MD
[2016-11-13] MEDS: MELATONIN PO SCH (20:31)
[2016-11-13] MEDS: BENADRYL PO PRN (20:32)
[2016-11-13] MEDS: HALDOL PO PRN (20:32)
[2016-11-13] MEDS: MILK OF MAGNESIA PO SCH (20:32)
[2016-11-14] MEDS: ZOSYN 3.375 GM/NS 3.375 GM/50 ML IVPB IV SCH (03:10)
[2016-11-14] MEDS ORDERED: LEVAQUIN PO SCH (09:15)
[2016-11-14] MEDS: VITAMIN D PO SCH (09:24)
[2016-11-14] MEDS: PRINIVIL PO SCH (09:25)
[2016-11-14] MEDS: SEROQUEL PO SCH (09:25)
[2016-11-14] MEDS: MIRALAX PO SCH (09:25)
[2016-11-14] MEDS: HALDOL PO PRN (09:25)
[2016-11-14] MEDS: BENADRYL PO PRN (09:25)
[2016-11-14] MEDS: CELEXA PO SCH (09:25)
[2016-11-14] MEDS: EXELON 4.6MG/24HRS TD SCH (09:26)
[2016-11-14] MEDS ORDERED: BENADRYL IM ONE ×2 (09:36→13:30)
[2016-11-14] MEDS ORDERED: HALDOL IM ONE ×2 (09:36→13:30)
--- NOTE | 2016-11-14 09:51 | DISCHARGE SUMMARY ---
ADMISSION DATE: 11/10/2016 DISCHARGE DATE: 11/14/2016 PRIMARY CARE PHYSICIAN: Erendira Guzman MD. ADMISSION DIAGNOSES: 1. Abdominal pain. 2. Colonic distention, consistent with Henderson syndrome. 3. Hypertension. 4. History of prostate cancer. 5. Coronary artery disease. 6. Hyperlipidemia. 7. Hypokalemia. DISCHARGE DIAGNOSES: 1. Colonic distention, consistent with Bautista syndrome, improved. 2. Escherichia coli urinary tract infection. 3. History of prostate cancer. 4. Known coronary artery disease. 5. Chronic dementia. SUMMARY OF FINDINGS: This is an 81-year-old, male who presented to the hospital from rehab with abdominal distention, pain, and no bowel movement for at least 3 days and possibly longer. He had some dementia and was unable to give a history. He had family at the bedside who stated that he had been complaining of abdominal pain for greater than 3 days. His appetite had decreased. MiraLAX had been given at rehab but he was unable to take a full dose because he would begin to feel full. No known nausea or vomiting. His abdomen x-ray revealed a distended bowel that could represent a distal obstruction, a volvulus, or even megacolon. We ordered a CT of the abdomen and pelvis that revealed Henderson syndrome. He was given 3 Dulcolax suppositories in the emergency room and had 2 very large bowel movements with some smaller bowel movements following. They were all formed. He had 2 liquid bowel movements the next morning. His abdomen showed less distention. He was admitted. We did consult surgery who saw the patient yesterday. [place] that his bowels were moving satisfactorily now. Tolerating his liquids so he advanced his diet to a mechanical soft. He tolerated that well. Now it is felt that he can safely be discharged to rehab. DISCHARGE MEDICATIONS: Will include Levaquin 500 mg p.o. daily for 5 days, lisinopril 20 mg p.o. daily, Lipitor 40 mg p.o. at bedtime, vitamin D3 2000 units orally daily, melatonin 3 mg p.o. at bedtime, MiraLAX 17 g p.o. daily, enteric-coated aspirin 325 mg p.o. daily, Seroquel 25 mg p.o. b.i.d., Celexa 20 mg p.o. daily, milk of magnesia 30 mL p.o. at bedtime, Tylenol 500 mg p.o. t.i.d. p.r.n. FOLLOWUP: He will follow up with his primary care physician once he has completed his rehab stay. This is a 35 minute discharge. Dictated by BRITTANY Bolanos for Ugo Tomas MD cc: BRITTANY Bolanos MD Emily M. McClure, MD
--- NOTE | 2016-11-14 10:23 | Diag Imaging Result Doc PS360 ---
EXAM: CHEST-PORTABLE - 11/14/2016 HISTORY: Return to rehab TECHNIQUE: Portable chest 1000 COMPARISON: 11/12/2016 FINDINGS: Heart size appears the in the upper range of normal and stable. Inspiration is mildly shallow. Allowing for inspiration, lungs appear essentially clear. There is a small granuloma from old granulomatous disease noted at the lateral right base which is stable. There is no pleural effusion or pneumothorax identified. IMPRESSION: Mildly shallow inspiration. No other evidence of acute disease. Electronically signed by Baldo Lock 11/14/2016 10:20 AM
[2016-11-14 12:17] VITALS: BP 152/69
== END 2016-11-14 13:52 ==
LOC: P.ED 15:58 → P.MEDSURG 20:55
PROVIDERS: ATTEND Family Medicine